=== PATIENT | female | born 2000 | race Caucasian/White ===

== ENCOUNTER 2022-08-27 12:24 | Inpatient (IN) ==
[2022-08-27 13:35] LABS: Basophils # (auto) 0.02 K/uL (0-0.2); Basophils % (auto) 0.3 %; Eosinophils # (auto) 0.11 K/uL (0-0.50); Eosinophils % (auto) 1.9 %; Hematocrit (blood only) 37.7 % (37.0-47.0); Hemoglobin 12.9 g/dl (12.0-16.0); Immature Granulocytes # (auto) 0.01 K/uL (0.01-0.20); Immature Granulocytes % (auto) 0.2 %; Lymphocytes # (auto) 1.45 K/uL (1.2-3.4); Lymphocytes % (auto) 24.9 %; Mean Corpuscular Hemoglobin 30.5 pg (25.0-34.0); Mean Corpuscular Hgb Conc 34.2 g/dL (32.0-36.0); Mean Corpuscular Volume 89.1 fL (80.0-100.0); Mean Platelet Volume 10.3 fL (9.4-12.4); Monocytes # (auto) 0.59 K/uL (0.11-0.59); Monocytes % (auto) 10.1 %; Neutrophils # (auto) 3.64 K/uL (1.40-6.50); Neutrophils % (auto) 62.6 %; Platelet Count 260 K/uL (130-400); RDW Coefficient of Variation 13.2 % (11.5-14.5); RDW Standard Deviation 42.6 fL (36.4-46.3); Red Blood Count 4.23 M/uL (4.20-5.40); White Blood Count 5.82 K/ul (4.8-10.8)
[2022-08-27 13:38] LABS: Total Protein Urine Random < 4.0 mg/dl (0-11.9)
[2022-08-27 13:50] LABS: Alanine Aminotransferase 8 U/L (7-52); Aspartate Aminotransferase 16 U/L (13-39)
[2022-08-27 14:14] LABS: Creatinine Urine Random 19.7 mg/dl
[2022-08-27] MEDS ORDERED: LACTATED RINGER'S 1,000 ML IV SCH ×2 (14:45→17:30)
[2022-08-27] MEDS ORDERED: CITRIC ACID/SODIUM CITRATE 15 ML UDC PO SCH (14:45)
[2022-08-27] MEDS ORDERED: ceFAZolin 2000MG 2,000 MG/15 ML SYR IV SCH (14:45)
--- NOTE | 2022-08-27 15:48 | History & Physical Report ---
Date of Service August 27, 2022 Assessment & Plan (1) Gestational hypertension: Plan: 2 para 1-0-0-1 female presents because of persistent headache and elevated blood pressures on 2 separate occasions 24 hours apart meeting criteria for gestational hypertension at 38-3/7 weeks. As a result, we will proceed with repeat section at this time. All PIH labs and subsequent blood pressures on further observation labor and delivery have been in the normal range. The section procedure and its risks were reviewed with the patient and all questions were answered to her satisfaction and she is willing to proceed. History of Present Illness Primary Care Provider: Morales Serrano DO Patient is a 22-year-old 2 para 1-0-0-1 female EDC 09/07/2022 who presents at 38-3/7 weeks for follow-up of elevated blood pressure in the office. Her blood pressures were elevated on 08/26/2022. They were 146/102 and after 5 minutes blood pressure was 134/98. She was sent to labor and delivery for further evaluation. PIH labs and blood pressures were normal during her observation in labor and delivery. Patient then developed a headache behind her left eye. She was seen in the office again today. She had taken Tylenol earlier today with no resolution of her headache. Blood pressures today were 144/92 and after sitting for 5 minutes, 136/92. She was sent to labor and delivery again for further evaluation. PIH labs are all normal. Urine protein creatinine ratio was 2 low to the detected. Despite the fact that her PIH labs again are normal, elevated blood pressures on 2 separate occasions 24 hours apart gives her the diagnosis of gestational hypertension. Since she is at 38 weeks gestation, we will therefore repeat section at this time. Her prior section was done because of failure to progress after 2 hours of pushing and nonreassuring heart rate pattern. Patient was requesting repeat section. This has been complicated by an abnormal heart on anatomy scan. The aorta was noted to be larger than the pulmonary artery. Follow-up echo however showed normal cardiac anatomy and normal large vessel anatomy. GBS is negative. Allergies Allergy/AdvReac Type Severity Reaction Status Date / Time miconazole Allergy Severe severe Verified 08/27/22 12:48 itching and burning Home Medications Medication Instructions Recorded Confirmed Type prenat.vits,gina,scn-hsym-lokhe 1 tab PO DAILY 01/15/22 08/27/22 History Patient History Medical History History of anesthesia complications epidural "did not work with her last , when they took me in for my , I felt everything and they had to put me completely under general anesthesia" History of COVID-19 2020, tested at [facility], not hosp; no symptoms, tested for work Hx of migraines Surgical History History of esophagogastroduodenoscopy (EGD) History of laparoscopy for endometriosis and "softball sized" ovarian cyst Hx of section S/P cholecystectomy S/P tonsillectomy S/P wisdom tooth extraction Family History Other Diabetes Heart disease Myocardial infarction Social History Smoking Status: Never smoker Second Hand Exposure: No; Do You Dip or Chew Tobacco: No; Hx Alcohol Use: No Hx Substance Use: No Preferred Language: Khmer Communication Ability: Effective 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 Beliefs That Will Affect Care: None marital status: marital status details: Dong (27) [phone] Current Living Situation: Spouse Current Living Situation Comment: lives with spouse, daughter, 1 dog, 1 cat, spouse to change litter current occupational status: employed current occupation: [employer] Feels Safe at Home: Yes Safety Concerns: Feels Safe At This Time Assistive Devices: None Review of Systems All systems reviewed & are unremarkable except as noted in HPI & below Physical Exam Constitutional: WD/WN, vitals as above Psychiatric: A+Ox3, euthymic affect Genitourinary: OB Exam Abdomen: + vertex, + estimated weight (6-7 pounds) and + irregular contractions OB Exam Monitor Tracing: + external FHT monitor used, + external uterine monitor used, + category I and + normal FHT variability Results & Data Vital Signs (Past 12 Hours) Vital Signs Temp Pulse Resp BP 08/27/22 12:46 97.9 F 18 08/27/22 14:16 95 H 122/82 08/27/22 13:45 106 H 114/76 08/27/22 13:15 96 H 120/80 08/27/22 12:42 88 121/83 Coding Level of Care Code None Diagnoses Gestational hypertension O13.9
[2022-08-27] MEDS ORDERED: ONDANSETRON INJ 2 MG/ML 2 ML VIAL ONE (16:07)
[2022-08-27] MEDS ORDERED: MoRPHine SULFATE PF 1 MG/ML 10 ML AMP/VIAL ONE (16:07)
[2022-08-27] MEDS ORDERED: KETAMINE 50 MG/5 ML SYRINGE ONE (16:47)
[2022-08-27] MEDS ORDERED: MIDAZOLAM HCL 1 MG/ML 2ML VIAL ONE (16:47)
--- NOTE | 2022-08-27 17:21 | Post Operative Brief Note ---
PG Immediate Post Op with CF Date of Surgery August 27, 2022 Pre & Post Diagnosis Operation Date: 08/27/22 15:05 Pre-Op Diagnosis: 1. IUP at 38 weeks 2. Gest Hypertension 3. Previous c/section desires repeat Post-Op Diagnosis: Same I identified the patient and participated in the time-out.: Yes Procedure Operation Date: 08/27/22 15:05 Actual Procedures p Section in LD with the of a live female child at 1650(Bilateral) - Lisbeth Barnhart MD, FACOG Surgeon Lisbeth Barnhart MD, FACOG Receiving Supervisor Aiyana Coates MD Estimated Blood Loss 400 Findings Consistent with Post-Op Diagnosis gravid uterus, normal Fallopian tubes and ovaries. Specimens Specimen Description: A: Placenta-hold B: Cord blood Drains Sheldon Catheter (Sheldon placed after spinal; clear yellow urine noted upon insertion. ) Anesthesia Type Spinal Complications none Disposition Accompanied Patient To Recovery: Yes
[2022-08-27] MEDS ORDERED: diphenhydrAMINE Capsule 25 MG CAP PO PRN (17:22)
[2022-08-27] MEDS ORDERED: PROMETHAZINE HCL 25 MG in SODIUM CHLORIDE 0.9% 50 ML IV PRN (17:22)
[2022-08-27] MEDS ORDERED: KETOROLAC 30 MG/ML VIAL IV PRN ×2 (17:22→18:00)
[2022-08-27] MEDS ORDERED: BENZOCAINE 20% AER SPR 82.5 GM CAN EXT PRN (17:22)
[2022-08-27] MEDS ORDERED: DIPHTHERIA/TETANUS/PERTUSSIS Vaccine (Tdap, Age 7+yrs) 0.5mL SYR/VL IM ONE (17:22)
[2022-08-27] MEDS ORDERED: diphenhydrAMINE 50 MG/ML VIAL IV PRN ×3 (17:22→18:00)
[2022-08-27] MEDS ORDERED: HYDROCORTISONE ACETATE 25 MG SUPP PR PRN (17:22)
[2022-08-27] MEDS ORDERED: MAGNESIUM HYDROXIDE SUSP 30 ML UDC PO PRN (17:22)
[2022-08-27] MEDS ORDERED: MEPERIDINE HCL 50 MG/ML CARP IV PRN (17:22)
[2022-08-27] MEDS ORDERED: ONDANSETRON INJ 2 MG/ML 2 ML VIAL IV PRN (17:22)
[2022-08-27] MEDS ORDERED: oxyCODONE/ACETAMINOPHEN 5mg/325mg TAB PO PRN (17:22)
[2022-08-27] MEDS ORDERED: SENNA 8.6 MG TAB PO PRN (17:22)
[2022-08-27] MEDS ORDERED: KETOROLAC 30 MG/ML VIAL ONE (17:38)
--- NOTE | 2022-08-27 17:40 | Anesthesiology Progress Note ---
Date of Service August 27, 2022 Anesthesia Post Procedure Vital Signs Vital Signs: Temp Pulse Resp BP Pulse Ox 08/27/22 12:46 36.6 C 18 08/27/22 17:34 70 100 08/27/22 14:16 95 H 122/82 08/27/22 13:45 106 H 114/76 08/27/22 13:15 96 H 120/80 08/27/22 12:42 88 121/83 Transfer of Care Handoff Completed per policy Notes Mental Status: alert / awake / arousable and participated in evaluation Nausea / Vomiting: adequately controlled Pain: adequately controlled Airway Patency, RR, SpO2: stable & adequate BP & HR: stable & adequate Hydration State: stable & adequate Neuraxial Anesthesia: was administered and sensory block is resolving Anesthetic Complications: no major complications apparent and Pt Satisfied with anesthetic care
--- NOTE | 2022-08-27 17:42 | Anesthesiology Consultation ---
Date of Service August 27, 2022 Assessment & Plan Chart Review Chart Review: Acceptable Risk for Surgery Consults Requested none ASA ASA2 Proposed Anesthesia Anesthesia Type: Spinal Risk / Benefits Reviewed With: PT / POA / Parent / Guardian, Accepts Plan and Informed Consent Obtained History Surgery Operation Date: 08/27/22 15:05 Proposed Procedures p Section in LD - Lisbeth Barnhart MD, FACOG Height/Weight Height: 5 ft 4 in Weight: 75.75 kg Allergies Allergy/AdvReac Type Severity Reaction Status Date / Time miconazole Allergy Severe severe Verified 08/27/22 12:48 itching and burning Medications Home Medications Medication Instructions Recorded Confirmed Last Taken prenat.vits,gina,ymr-[id number]-[id number] 1 tab PO DAILY 01/15/22 08/27/22 08/26/22 NPO Date Last Intake of Fluids: 08/27/22 Time Last Intake of Fluids: 07:00 Date Last Intake of Solids: 08/27/22 Time Last Intake of Solids: 07:00 Past Medical History Medical History History of anesthesia complications epidural "did not work with her last , when they took me in for my , I felt everything and they had to put me completely under general anesthesia" History of COVID-19 2019, tested at [facility], not hosp; no symptoms, tested for work Hx of migraines Exercise / Class Metabolic Activity II 4-5 Yardwork/Stairs/Walk up hill Past Family History Family History Other Diabetes Heart disease Myocardial infarction Past Surgical History Surgical History History of esophagogastroduodenoscopy (EGD) History of laparoscopy for endometriosis and "softball sized" ovarian cyst Hx of section S/P cholecystectomy S/P tonsillectomy S/P wisdom tooth extraction Past Anesthesia History No Hx of Anesthesia Complications History of PONV No Hx of PONV Social History Smoking Status: Never smoker Do You Dip or Chew Tobacco: No Hx Alcohol Use: No Hx Substance Use: No substance use type: does not use Physical Exam Vital Signs Last Vital Signs Temp 36.6 C 08/27/22 12:46 Pulse 70 08/27/22 17:34 Resp 18 08/27/22 12:46 BP 122/82 08/27/22 14:16 Pulse Ox 100 08/27/22 17:34 Constitutional no acute distress ENMT Thyromental Distance: > or= 3.5 Finger Breadths Mallampati Class: II Neck normal visual inspection Respiratory normal respiratory effort; no respiratory distress Auscultation: lungs clear to auscultation bilaterally Cardiovascular Rate/Rhythm: regular rate and regular rhythm Heart Sounds: no murmur Psychiatric Orientation: alert and oriented x 3 Testing Laboratory Results 08/27/22 13:06 Blood Type O Positive 08/27/22 14:47 Antibody Screen NEGATIVE 08/27/22 14:47
[2022-08-27] MEDS ORDERED: ePHEDrine sulfate 50 MG/ML AMP IV PRN ×3 (18:00)
[2022-08-27] MEDS ORDERED: NALOXONE HCL 1 MG in SODIUM CHLORIDE 0.9% 1000ML 1,000 ML IV PRN (18:00)
[2022-08-27] MEDS ORDERED: LACTATED RINGER'S 500 ML IV PRN ×2 (18:00)
[2022-08-27] MEDS ORDERED: NALOXONE HCL 0.08 MG in SYRINGE 1.8 ML IV PRN (18:00)
[2022-08-27] MEDS ORDERED: MoRPHine SULFATE PF 1 MG/ML 10 ML AMP/VIAL INT SPINAL ONE (18:00)
[2022-08-27] MEDS ORDERED: DC INTRASPINAL MORPHINE SCH ×2 (18:00)
[2022-08-27] MEDS ORDERED: SODIUM CHLORIDE 0.9% 1000ML 1,000 ML IV SCH ×2 (18:00)
[2022-08-27] MEDS ORDERED: NALBUPHINE HCL INJ 10 MG/ML AMP IV PRN ×2 (18:00)
[2022-08-27] MEDS ORDERED: HYDROmorphone INJ 0.5 MG/0.5 ML SYR IV PRN (18:00)
[2022-08-27] MEDS ORDERED: NALOXONE HCL 0.4 MG/1 ML VIAL/CARP IV PRN ×2 (18:00)
[2022-08-27] MEDS ORDERED: NO NARCOTICS OR SEDATIVES SCH ×2 (18:00)
[2022-08-27] MEDS ORDERED: ATROPINE SULFATE 0.1 MG/ML 10ML SYR IV PRN (18:00)
[2022-08-27] MEDS ORDERED: HYDROmorphone INJ 0.5 MG/0.5 ML SYR ONE (18:03)
[2022-08-27] MEDS ORDERED: HYDROmorphone INJ 0.5 MG/0.5 ML SYR IV STA (18:06)
[2022-08-27] MEDS: OXYTOCIN 20 UNITS in LACTATED RINGER'S 1,000 ML IV SCH (19:01)
[2022-08-27] MEDS ORDERED: ACETAMINOPHEN 1,000 MG/100 ML VIAL IV PRN (19:01)
--- NOTE | 2022-08-27 19:12 | Operative Report ---
PG Post Operative Report Pre & Post Diagnosis Operation Date: 08/27/22 15:05 Pre-Op Diagnosis: 1. IUP at 38 weeks 2. Gest Hypertension 3. Previous c/section desires repeat Post-Op Diagnosis: Same I identified the patient and participated in the time-out.: Yes Procedure Operation Date: 08/27/22 15:05 Actual Procedures p Section in LD with the of a live female child at 1650(Bilateral) - Lisbeth Barnhart MD, FACOG Surgeon Lisbeth Barnhart MD, FACOG Finance Business Partner Aiyana Coates MD Estimated Blood Loss 400 Findings Consistent with Post-Op Diagnosis Gravid uterus consistent with term in size normal bilateral fallopian tubes and ovaries Specimens placenta to hold Drains Sheldon catheter to straight drainage- clear urine at end of the case Anesthesia Type Spinal Complications none Disposition Accompanied Patient To Recovery: Yes Indications Patient is a 22-year-old 2 para 1-0-0-1 female who presents at 38 3/7 weeks with blood pressure criteria that meets the diagnosis of gestational hypertension. She had a prior section for failure to progress and she is requesting repeat section. Procedure and its risks were reviewed with the patient and all of her questions were answered to her satisfaction and she is willing to proceed. Description of Procedure After the patient's received adequate subarachnoid block she was prepped and draped in usual sterile fashion. A low transverse skin incision was made with a scalpel through her prior scar. This was taken to the fascia with the same scalpel. The fascial incision was then extended with Peterson scissors the edges were then grasped with Lazara clamps and the underlying rectus muscles bluntly sharply dissected off of the overlying fascia. The peritoneal cavity was entered bluntly and the bladder was then taken down off the anterior surface of the uterus. At this point patient was becoming painful and she received IV medications for sedation at this time. We were then able to continue with the section. After the bladder was taken down off the anterior surface of the uterus, it was placed behind the bladder blade. The lower uterine segment was entered with a scalpel and the incision was extended transversely. Membranes were ruptured for clear fluid. The was delivered in the vertex presentation with assistance of the Kiwi vacuum to bring the head up out of the pelvis. Moderate fundal pressure was also applied and after the head was delivered the rest the baby delivered easily. It was a female that was vigorous and crying upon delivery. The cord was clamped and cut and the was handed off to Dr. Travis who was in attendance as clipping marker. After cord blood was obtained, the placenta was expressed intact with a three-vessel cord. Uterus was then exteriorized and covered with a clean lap sponge. Uterine cavity was explored and found to be free of any placental tissue or membranes. The uterus was then closed in 2 layers in a running locking imbricating fashion with 0 Monocryl suture. Hemostasis was noted to be excellent. The posterior cul-de-sac was suctioned for small amount of fluid. The uterine incision continued to have excellent hemostasis and therefore the uterus was placed back inside the abdominal cavity. The gutters were explored and found to be free of any placental tissue clots or fluid. The uterine incision continued to be hemostatic. The rectus muscle were then brought together on the midline with individual stitches of 0 Monocryl. The fascia was then closed in a running fashion with 0 Vicryl. After irrigating the adipose layer, the skin edges were in a subcutaneous manner with 3-0 Vicryl. Mother and were doing well after delivery and upon arrival back in the labor delivery unit. I attest to the content of the Intraoperative Record and any orders documented therein. Any exceptions are noted below. OB Procedure Charges 57161
[2022-08-27] MEDS ORDERED: LACTATED RINGER'S 500 ML IV ONE ×2 (19:53→19:54)
[2022-08-27] MEDS: DOCUSATE SODIUM 100 MG CAP PO SCH (20:56)
[2022-08-27] MEDS: SIMETHICONE 80 MG CHEW PO SCH (20:56)
[2022-08-28] MEDS: OXYTOCIN 20 UNITS in LACTATED RINGER'S 1,000 ML IV SCH (03:45)
[2022-08-28 06:52] LABS: Basophils # (auto) 0.03 K/uL (0-0.2); Basophils % (auto) 0.4 %; Eosinophils # (auto) 0.11 K/uL (0-0.50); Eosinophils % (auto) 1.5 %; Hematocrit (blood only) 33.4 % (37.0-47.0); Hemoglobin 11.2 g/dl (12.0-16.0); Immature Granulocytes # (auto) 0.02 K/uL (0.01-0.20); Immature Granulocytes % (auto) 0.3 %; Lymphocytes # (auto) 1.32 K/uL (1.2-3.4); Lymphocytes % (auto) 17.8 %; Mean Corpuscular Hemoglobin 30.4 pg (25.0-34.0); Mean Corpuscular Hgb Conc 33.5 g/dL (32.0-36.0); Mean Corpuscular Volume 90.5 fL (80.0-100.0); Mean Platelet Volume 10.3 fL (9.4-12.4); Monocytes % (auto) 10.8 %; Neutrophils # (auto) 5.14 K/uL (1.40-6.50); Neutrophils % (auto) 69.2 %; Platelet Count 189 K/uL (130-400); RDW Coefficient of Variation 13.3 % (11.5-14.5); RDW Standard Deviation 43.6 fL (36.4-46.3); Red Blood Count 3.69 M/uL (4.20-5.40); White Blood Count 7.42 K/ul (4.8-10.8)
[2022-08-28] MEDS: PRENATAL VITAMIN 1 TAB PO SCH (08:05)
[2022-08-28] MEDS: DOCUSATE SODIUM 100 MG CAP PO SCH ×2 (08:05→20:02)
[2022-08-28] MEDS: FERROUS SULFATE 325 MG TAB PO SCH (08:05)
[2022-08-28] MEDS: SIMETHICONE 80 MG CHEW PO SCH ×4 (08:05→20:02)
--- NOTE | 2022-08-28 08:41 | Obstetrical Progress Note ---
Date of Service August 28, 2022 Assessment & Plan (1) Encounter for care and examination after delivery: satisfactory exam continue current care plan Subjective Ambulation: limited ambulation Voiding: rivera catheter in place Passing Gas:: Yes Diet Tolerance:: clear liquids Lochia:: Small Feeding Type:: breast feeding Review of Systems All systems reviewed & are unremarkable except as noted in HPI & below Physical Exam Constitutional WD/WN, vitals as above Gastrointestinal (Abdomen) incision dry and intact. mild ecchymosis superiorly Psychiatric A+Ox3, euthymic affect Genitourinary OB Exam Abdomen: + fundal height Fundus: + firm and + relation to umbilicus (at U) Results & Data Vital Signs (Past 12 Hours) Vital Signs Temp Pulse Resp BP Pulse Ox O2 Del Method 08/28/22 07:00 97.5 F L 75 16 116/80 100 Room Air 08/28/22 07:00 18 100 08/28/22 06:15 18 99 08/28/22 05:45 18 96 08/28/22 03:40 18 97 08/28/22 03:40 97.7 F 84 18 113/77 97 Room Air 08/28/22 02:30 18 97 08/28/22 01:00 18 98 08/28/22 00:00 18 98 08/27/22 23:20 18 98 08/27/22 23:12 97.9 F 79 18 116/75 98 Room Air 08/27/22 22:00 16 96 08/27/22 21:00 18 97
[2022-08-28] MEDS: IBUPROFEN 600 MG TAB PO PRN ×2 (11:08→19:58)
[2022-08-28] MEDS ORDERED: bisacodyL 5 MG TABEC PO SCH (20:00)
[2022-08-29] MEDS: IBUPROFEN 600 MG TAB PO PRN ×2 (01:47→05:56)
[2022-08-29] MEDS: SIMETHICONE 80 MG CHEW PO SCH (05:54)
[2022-08-29] MEDS: PRENATAL VITAMIN 1 TAB PO SCH (05:54)
[2022-08-29] MEDS: DOCUSATE SODIUM 100 MG CAP PO SCH (05:54)
[2022-08-29] MEDS: FERROUS SULFATE 325 MG TAB PO SCH (05:54)
[2022-08-29 06:17] LABS: Hematocrit (blood only) 33.2 % (37.0-47.0); Hemoglobin 11.1 g/dl (12.0-16.0)
--- NOTE | 2022-08-29 07:30 | Obstetrical Progress Note ---
Date of Service August 29, 2022 Assessment & Plan (1) Encounter for care and examination after delivery: Postoperative from section patient meets discharge criteria as she is ambulating well tolerating an oral diet has minimal bleeding and no extremity pain. Discharge instructions were reviewed and prescriptions were sent to her pharmacy of choice patient advised to call with any concerns and follow-up in the office discussed incision cdi ext neg Subjective Ambulation: ambulating normally Voiding: no voiding problems Passing Gas:: Yes Diet Tolerance:: regular diet Lochia:: Small Feeding Type:: breast feeding Results & Data Vital Signs (Past 12 Hours) Vital Signs Temp Pulse Resp BP Pulse Ox O2 Del Method 08/29/22 03:35 98.1 F 74 18 107/69 98 Room Air 08/28/22 22:56 97.5 F L 81 18 108/70 98 Room Air 08/28/22 19:40 98.2 F 90 18 117/75 98 Room Air 08/28/22 19:40 Room Air
[2022-08-29] MEDS ORDERED: bisacodyL 10 MG SUPP PR PRN (17:22)
== END 2022-08-29 10:30 | disposition home or self-care (01) | DRG 788 ==
LOC: OPB 12:24 → 4S1 12:28 → 4E2 19:59

== ENCOUNTER 2023-09-15 21:45 | Observation (INO) ==
--- NOTE | 2023-09-15 22:00 | Emergency Department Note ---
History of Present Illness General Chief complaint: Rectal Pain Stated complaint: HYSTERECTOMY/2WKS AGO, RECTAL PAIN Time Seen by Provider: 09/15/23 21:51 History of Present Illness This 23-year-old female presents ER complaining of rectal pain and pain with bowel movements for the past few days. Patient had a hysterectomy 2 weeks ago. She tried MiraLAX and Colace without relief. She is tried Preparation H. Patient denies abdominal pain, fevers, vomiting, anal insertion. No other concerns per patient. No colonoscopy in the past. She has had hemorrhoids but this feels different Home Medications Medication Instructions Recorded Confirmed Type docusate sodium 100 mg capsule 100 mg PO TID 09/15/23 09/15/23 History (Colace) polyethylene glycol 3350 17 gram 17 g PO DAILY PRN Constipation 09/15/23 09/15/23 History oral powder packet (Miralax) Allergies Allergy/AdvReac Type Severity Reaction Status Date / Time miconazole Allergy Severe severe Verified 09/15/23 22:52 itching and burning adhesive tape Allergy Intermediate skin Verified 09/15/23 22:52 irritation/rash surgical glue Allergy Severe Rash Uncoded 09/15/23 22:52 Past Med/Surg History Problem List (Updated 09/16/23 @ 01:08 by Jillian Muro PA-C) Postoperative abscess (Acute) Rectal pain (Acute) Post-operative state Abnormal uterine bleeding (AUB) Pain in female pelvis Vaginal discharge Dysuria Post-operative state Sterilization Encounter for care and examination after delivery Elevated blood pressure affecting , antepartum Encounter for pre-operative examination size inconsistent with dates Encounter for anatomic survey Previous delivery affecting , antepartum Supervision of normal intrauterine in multigravida Medical History Hx of gastroesophageal reflux (GERD) diet controlled History of pneumonia as a teenager History of COVID-19 (2019) mild, not hospitalized, Hx of ovarian cyst Hx of endometriosis Pain in female pelvis Abnormal uterine bleeding History of gestational hypertension resulted in Hx of migraines Surgical History Hx of bilateral salpingectomy (12/2022) [place] teeth removed History of tonsillectomy and adenoidectomy History of anesthesia complications epidural "did not work with her last , when they took me in for my , I felt everything and they had to put me completely under general anesthesia" History of esophagogastroduodenoscopy (EGD) History of laparoscopy x 2>for endometriosis and "softball sized" ovarian cyst (2017) S/P cholecystectomy Hx of section x 2 Family History Father Heart disease recent [place], Stents, in 40's Myocardial infarction in 40's, had stents Grandfather Heart disease Other Diabetes No family history of adverse response to anesthesia Social History Smoking Status: Never smoker Second Hand Exposure: No; Do You Dip or Chew Tobacco: No; Hx Alcohol Use: Yes Hx Substance Use: No Preferred Language: Brazilian Communication Ability: Effective Right Of Way Man Required: No Beliefs That Will Affect Care: None marital status: marital status details: Dong (27) [phone] Current Living Situation: Spouse and Family Current Living Situation Comment: lives with spouse, daughter, 1 dog, 1 cat, spouse to change litter current occupational status: employed current occupation: [email or web address] Feels Safe at Home: Yes Assistive Devices: None Review of Systems A total of 10 systems reviewed and were otherwise negative Physical Exam Vital Signs Vital Signs - 24 hr 09/15/23 21:48 09/15/23 21:57 09/15/23 23:20 Temperature 36.6 C Temperature Source Temporal Artery Scan Pulse Rate 117 H 130 H Pulse Rate [Apical] 93 H Pulse Rhythm Regular Pulse Strength Normal Respiratory Rate 20 23 18 Respiratory Effort / Characteristics Non-Labored Spontaneous Respiratory Depth Normal Blood Pressure 150/81 H Blood Pressure [Right Arm] 120/74 Blood Pressure Mean 104 Blood Pressure Mean [Right Arm] 89 Blood Pressure Position Sitting Blood Pressure Position [Right Arm] Sitting Pulse Oximetry 97 94 99 Oxygen Delivery Method Room Air Room Air Room Air Sepsis Recent Fever Within 48 Hours No Sepsis New/Unexplained Change in Mental Status N/A Sepsis Action Taken by Nursing No Action Required VITALS: Vitals are noted on the nurse's note and reviewed by myself. Vital signs stable. GENERAL: Pleasant female, in no acute distress, nondiaphoretic, well-developed well-nourished. SKIN: Capillary reflex less than 2 seconds. HEENT: Normocephalic. PERRLA. EOMI. Nares patent. Mucous membranes moist. Neck is supple without nuchal rigidity. HEART: Regular rate and rhythm LUNGS: Clear to auscultation bilaterally without wheezes, rales or rhonchi. No retractions or accessory muscle use. ABDOMEN: Positive bowel sounds x 4. Normal tympanic percussion. Soft, nontender, without masses or organomegaly. Norris sign negative. No guarding or rebound tenderness. no CVA tenderness Rectal exam: No fissures or tears, no obvious hemorrhoids, no palpable abscess. Computer [employer] present MUSCULOSKELETAL: No gross musculoskeletal defects. NEURO: Patient was alert and oriented to person place and time. No focal neurological deficits. Course Administered Medications Discontinued Medications Sodium Chloride (Nss) 1,000 mls @ 999 mls/hr IV .Q1H1M STA Stop: 09/15/23 22:57 Last Infusion: 09/15/23 23:53 Dose: Infused Documented By: Admin: 09/15/23 22:26 Dose: 999 mls/hr Documented By: Ioversol (Optiray 320 100ml) 100 ml IV ONCE ONE Stop: 09/15/23 23:09 Last Admin: 09/15/23 23:09 Dose: 92 ml Documented By: CARLOS Ketorolac Tromethamine (Ketorolac Tromethamine 15 Mg/Ml Vial) 10 mg IV NOW STA Stop: 09/15/23 21:58 Last Admin: 09/15/23 22:28 Dose: 10 mg Documented By: Medical Decision Making Medical Records Attestation: I reviewed the patient's medical records. Home Medications Current Medication List: was personally reviewed by me Laboratory Data Attestation: I reviewed the patient's lab results. 09/15/23 22:15 09/15/23 22:15 Lab Results 09/15/23 09/16/23 Range/Units 22:15 00:47 WBC 9.42 (4.8-10.8) K/ul RBC 4.66 (4.20-5.40) M/uL Hgb 14.1 (12.0-16.0) g/dl Hct 40.5 (37.0-47.0) % MCV 86.9 (80.0-100.0) fL MCH 30.3 (25.0-34.0) pg MCHC 34.8 (32.0-36.0) g/dL RDW Std Deviation 38.7 (36.4-46.3) fL RDW Coeff of Robbi 12.3 (11.5-14.5) % Plt Count 344 (130-400) K/uL MPV 9.5 (9.4-12.4) fL Immature Gran % (Auto) 0.2 % Neut % (Auto) 66.4 % Lymph % (Auto) 17.3 % [place] % (Auto) 12.0 % Eos % (Auto) 3.4 % Baso % (Auto) 0.7 % Neut # (Auto) 6.25 (1.40-6.50) K/uL Lymph # (Auto) 1.63 (1.20-3.40) K/uL [place] # (Auto) 1.13 H (0.11-0.59) K/uL Eos # (Auto) 0.32 (0.00-0.50) K/uL Baso # (Auto) 0.07 (0.00-0.20) K/uL Immature Gran # (Auto) 0.02 (0.01-0.20) K/uL Sodium 137 (136-145) mmol/L Potassium 4.0 (3.5-5.1) mmol/L Chloride 102 (98-107) mmol/L Carbon Dioxide 28 (21-32) mmol/L Anion Gap 7 (3-11) BUN 10 (6-23) mg/dl Creatinine 0.67 (0.6-1.2) mg/dl Est Cr Clr Drug Dosing 125.6 ml/min Est GFR ( Amer) 141.6 ml/min Est GFR (Non-Af Amer) 122.2 ml/min BUN/Creatinine Ratio 14.9 (10-20) Glucose 98 (70-99(Fasting)) mg/dl Lactate 0.6 (0.4-2.0) mmol/L Calcium 9.4 (8.6-10.3) mg/dl Total Bilirubin 0.6 (0.2-1.0) mg/dl AST 22 (13-39) U/L ALT 24 (7-52) U/L Alkaline Phosphatase 105 H (34-104) U/L Total Protein 7.6 (6.0-8.3) gm/dl Albumin 4.6 (3.4-5.0) gm/dl Globulin 3.0 (2.5-4.0) gm/dl Albumin/Globulin Ratio 1.5 (0.9-2) Urine Color Yellow Urine Appearance Clear (Clear) Urine pH 6.5 (4.5-7.5) Ur Specific [place] 1.012 (1.000-1.030) Urine Protein Negative (Negative) Urine Glucose (UA) Negative (Negative) Urine Ketones Negative (Negative) Urine Blood 1+ H (Negative) Urine Nitrite Negative (Negative) Urine Bilirubin Negative (Negative) Urine Urobilinogen Negative (Negative) Ur Leukocyte Esterase 2+ H (Negative) Urine WBC (Auto) 11-20 H (0-5) /hpf Urine RBC (Auto) 0-2 (0-2) /hpf U Hyaline Cast (Auto) 0-2 (0-2) /lpf U Epithel Cells (Auto) 6-10 H (0-2) /hpf Urine Bacteria (Auto) None Seen (None Seen) Imaging Data Attestation: I personally reviewed and interpreted this imaging study as follows: Radiologist's Impression: Abdomen/Pelvis CT 09/15/23 21:58 CR Exam(s): CT ABDOMEN + PELVIS With Contrast IV Amt: 92 ML OPTIRAY 320 EXAM: CT Abdomen and Pelvis With Intravenous Contrast CLINICAL HISTORY: Rectal Pain, recent hysterectomy. TECHNIQUE: Axial computed tomography images of the abdomen and pelvis with intravenous contrast. CTDI is 21 mGy and DLP is 1091 mGy-cm. Automated exposure control was utilized for the study. A dose lowering technique was utilized adhering to the principles of ALARA. CONTRAST: Patient received 92 ML OPTIRAY 320 of IV contrast COMPARISON: No relevant prior studies available. FINDINGS: Lung bases: Unremarkable. No mass. No consolidation. ABDOMEN: Liver: Unremarkable. No mass. Gallbladder and bile ducts: Unremarkable. No calcified stones. No ductal dilation. Pancreas: Unremarkable. No mass. No ductal dilation. Spleen: Unremarkable. No splenomegaly. Adrenals: Unremarkable. No mass. Kidneys and ureters: Unremarkable. No solid mass. No hydronephrosis. Stomach and bowel: Unremarkable. No obstruction. No mucosal thickening. PELVIS: Appendix: Normal appendix. Bladder: Unremarkable. No mass. Reproductive: There is a 3.6 x 3.2 x 2.7 cm fluid collection at the hysterectomy site concerning for an abscess. This abuts the rectum which demonstrates thickening of the wall. Hysterectomy. ABDOMEN and PELVIS: Intraperitoneal space: Unremarkable. No free air. No significant fluid collection. Bones/joints: No acute fracture. No dislocation. Soft tissues: Small fat-containing umbilical hernia. Vasculature: Unremarkable. No abdominal aortic aneurysm. Lymph nodes: Unremarkable. No enlarged lymph nodes. IMPRESSION: There is a 3.6 x 3.2 x 2.7 cm fluid collection at the hysterectomy site concerning for an abscess. This abuts the rectum which demonstrates thickening of the wall. Communications: Verify Receipt Electronically signed by: Omayra Smith MD 09/16/23 00:05 AM MDM Narrative Prior records/ancillary studies reviewed. Triage Nursing notes reviewed. Additional history obtained from nurse. The patient's history was concerning for rectal pain Differential diagnosis: Etiologies such as fissure, tear, abscess, cellulitis, hemorrhoids, infection, as well as others were entertained. Physical examination findings: As above. ER treatment provided: An order was placed for continuous cardiac monitoring. The monitor shows a rate of 60-100 with a sinus rhythm per my Independent interpretation. IV fluids, Toradol was ordered Zosyn On reassessment the patient felt better. Diagnostics interpreted by me: The labs Independently Interpreted by myself revealed no worrisome leukocytosis, negative urine. Blood cultures pending Negative lactic Imaging studies: Imaging as above Consultation: A consultation was placed with the [facility], Dr. Riddle. The case was discussed and diagnostics were reviewed. The patient was admitted to her service. Exam and history seem consistent with rectal pain with concerns for postsurgical infection. Patient was afebrile nontoxic. No leukocytosis. Negative lactic. She was started on antibiotics. OB was consulted and will admit the patient to their service. Patient was admitted to [facility] in stable condition. By the evaluation outlined above emergent etiologies such as appendicitis, diverticulitis, PUD, biliary pathology, UTI, pancreatitis, obstruction, mesenteric ischemia, aortic pathology, inflammatory bowel disease, renal colic, as well as others were deemed relatively unlikely. The pt informed about the findings as listed above. All questions were answered and pleased with the treatment. The chart was completed utilizing [employer] voice recognition software. Grammatical errors, random word insertions, pronoun errors, and incomplete sentences are an occassional consequence of this system due to software limitations, ambient noise, and hardware issues. Any formal questions or concerns about the content, text, or information contained within the body of this dictation should be directly addressed to the physician marketing communications assistant for clarification. Impression & Plan Rectal pain, Postoperative abscess Discharge Plan Visit Data Chief Complaint: Rectal Pain Stated Complaint: HYSTERECTOMY/2WKS AGO, RECTAL PAIN ED Provider: Donal Mayo ED Midlevel Provider: Jillian Muro Discharge Problem: Rectal pain, Postoperative abscess Patient Disposition: Admitted As Inpatient Condition: Good Forms Stand Alone Forms: [employer] [facility] Prescriptions Prescriptions: No Action polyethylene glycol 3350 [Miralax] 17 gram Powder In Packet 17 g PO DAILY PRN (Reason: Constipation) docusate sodium [Colace] 100 mg Capsule 100 mg PO TID Referrals Referrals: Morales Serrano DO [Primary Care Provider] -
[2023-09-15] MEDS: SODIUM CHLORIDE 0.9% 1,000 ML IV STA (22:26)
[2023-09-15] MEDS: KETOROLAC TROMETHAMINE 15 MG/ML VIAL IV STA (22:28)
[2023-09-15 22:35] LABS: Basophils # (auto) 0.07 K/uL (0.00-0.20); Basophils % (auto) 0.7 %; Eosinophils # (auto) 0.32 K/uL (0.00-0.50); Eosinophils % (auto) 3.4 %; Hematocrit (blood only) 40.5 % (37.0-47.0); Hemoglobin 14.1 g/dl (12.0-16.0); Immature Granulocytes # (auto) 0.02 K/uL (0.01-0.20); Immature Granulocytes % (auto) 0.2 %; Lymphocytes # (auto) 1.63 K/uL (1.20-3.40); Lymphocytes % (auto) 17.3 %; Mean Corpuscular Hemoglobin 30.3 pg (25.0-34.0); Mean Corpuscular Hgb Conc 34.8 g/dL (32.0-36.0); Mean Corpuscular Volume 86.9 fL (80.0-100.0); Mean Platelet Volume 9.5 fL (9.4-12.4); Monocytes # (auto) 1.13 K/uL (0.11-0.59); Neutrophils # (auto) 6.25 K/uL (1.40-6.50); Neutrophils % (auto) 66.4 %; Platelet Count 344 K/uL (130-400); RDW Coefficient of Variation 12.3 % (11.5-14.5); RDW Standard Deviation 38.7 fL (36.4-46.3); Red Blood Count 4.66 M/uL (4.20-5.40); White Blood Count 9.42 K/ul (4.8-10.8)
[2023-09-15 22:41] LABS: Appearance Urine Clear (Clear); Bacteria Urine Automated None Seen (None Seen); Bilirubin Urine Negative (Negative); Blood Urine 1+ (Negative); Cast Urine Automated 0-2 /lpf (0-2); Color Urine Yellow; Glucose Urine UA Negative (Negative); Ketones Urine Negative (Negative); Leukocyte Esterase Urine 2+ (Negative); Nitrite Urine Negative (Negative); Protein Urine Negative (Negative); RBC Urine Automated 0-2 /hpf (0-2); Specific Gravity Urine 1.012 (1.000-1.030); Urobilinogen Urine Negative (Negative); pH Urine 6.5 (4.5-7.5)
[2023-09-15 22:48] LABS: Albumin Globulin Ratio 1.5 (0.9-2); Albumin Level 4.6 gm/dl (3.4-5.0); BUN Creatinine Ratio 14.9 (10-20); Bilirubin,Total 0.6 mg/dl (0.2-1.0); Calcium 9.4 mg/dl (8.6-10.3); Creatinine Clr Calc Pharmacy 125.6 ml/min; Est GFR (African American) 141.6 ml/min; Est GFR (Non-African American) 122.2 ml/min; Total Protein 7.6 gm/dl (6.0-8.3)
[2023-09-15] MEDS: OPTIRAY 320 100ml IV ONE (23:09)
--- NOTE | 2023-09-16 00:05 | CT Scan Report ---
Exam(s): CT ABDOMEN + PELVIS With Contrast IV Amt: 92 ML OPTIRAY 320 EXAM: CT Abdomen and Pelvis With Intravenous Contrast CLINICAL HISTORY: Rectal Pain, recent hysterectomy. TECHNIQUE: Axial computed tomography images of the abdomen and pelvis with intravenous contrast. CTDI is 21 mGy and DLP is 1091 mGy-cm. Automated exposure control was utilized for the study. A dose lowering technique was utilized adhering to the principles of ALARA. CONTRAST: Patient received 92 ML OPTIRAY 320 of IV contrast COMPARISON: No relevant prior studies available. FINDINGS: Lung bases: Unremarkable. No mass. No consolidation. ABDOMEN: Liver: Unremarkable. No mass. Gallbladder and bile ducts: Unremarkable. No calcified stones. No ductal dilation. Pancreas: Unremarkable. No mass. No ductal dilation. Spleen: Unremarkable. No splenomegaly. Adrenals: Unremarkable. No mass. Kidneys and ureters: Unremarkable. No solid mass. No hydronephrosis. Stomach and bowel: Unremarkable. No obstruction. No mucosal thickening. PELVIS: Appendix: Normal appendix. Bladder: Unremarkable. No mass. Reproductive: There is a 3.6 x 3.2 x 2.7 cm fluid collection at the hysterectomy site concerning for an abscess. This abuts the rectum which demonstrates thickening of the wall. Hysterectomy. ABDOMEN and PELVIS: Intraperitoneal space: Unremarkable. No free air. No significant fluid collection. Bones/joints: No acute fracture. No dislocation. Soft tissues: Small fat-containing umbilical hernia. Vasculature: Unremarkable. No abdominal aortic aneurysm. Lymph nodes: Unremarkable. No enlarged lymph nodes. IMPRESSION: There is a 3.6 x 3.2 x 2.7 cm fluid collection at the hysterectomy site concerning for an abscess. This abuts the rectum which demonstrates thickening of the wall. Communications: Verify Receipt Electronically signed by: Omayra Smith MD 09/16/23 00:05 AM
--- NOTE | 2023-09-16 01:14 | History & Physical Report ---
Date of Service September 16, 2023 Assessment & Plan (1) Rectal pain: Plan: Initial read of CT scan of vaginal cuff abscess. Patient is afebrile with normal vitals and normal labs. Differential includes abscess vs Tisseal across vaginal cuff. Started on Zosyn in ER - will admit and continue IV antibiotics. Will provide bowel regimen: colace, miralax, milk of mag, in efforts to relieve constipation. For pain control, ibuprofen/tylenol - will attempt to avoid narcotics if possible to avoid further constipation problems. History of Present Illness Chief Complaint: constipation Primary Care Provider: Morales Serrano, 23yo who presented to ER with concerns of constipation and rectal pain. Hysterectomy 08/31/23 for endometriosis and chronic pelvic pain. No bowel movement today - worried she may have hemorrhoids. Very light pink vaginal bleeding. Eating/drinking normally. No fever/chills. Allergies Allergy/AdvReac Type Severity Reaction Status Date / Time miconazole Allergy Severe severe Verified 09/15/23 22:52 itching and burning propolis (bee glue) Allergy Severe "surgical Verified 09/16/23 02:12 glue" -- Rash adhesive tape Allergy Intermediate skin Verified 09/15/23 22:52 irritation/rash Home Medications Medication Instructions Recorded Confirmed Type docusate sodium 100 mg capsule 100 mg PO TID 09/15/23 09/15/23 History (Colace) polyethylene glycol 3350 17 gram 17 g PO DAILY PRN Constipation 09/15/23 09/15/23 History oral powder packet (Miralax) Patient History Medical History Hx of gastroesophageal reflux (GERD) diet controlled History of pneumonia as a teenager History of COVID-19 (2019) mild, not hospitalized, Hx of ovarian cyst Hx of endometriosis Pain in female pelvis Abnormal uterine bleeding History of gestational hypertension resulted in Hx of migraines Surgical History Hx of bilateral salpingectomy (12/2022) [place] teeth removed History of tonsillectomy and adenoidectomy History of anesthesia complications epidural "did not work with her last , when they took me in for my , I felt everything and they had to put me completely under general anesthesia" History of esophagogastroduodenoscopy (EGD) History of laparoscopy x 2>for endometriosis and "softball sized" ovarian cyst (2017) S/P cholecystectomy Hx of section x 2 Family History Father Heart disease recent [place], Stents, in 40's Myocardial infarction in 40's, had stents Grandfather Heart disease Other Diabetes No family history of adverse response to anesthesia Social History Smoking Status: Never smoker Second Hand Exposure: No; Do You Dip or Chew Tobacco: No; Hx Alcohol Use: Yes Alcohol type: beer Hx Substance Use: No Preferred Language: Icelandic Communication Ability: Effective R And D Lab Technician Required: No Beliefs That Will Affect Care: None marital status: marital status details: Dong (27) [phone] Current Living Situation: Spouse and Family Current Living Situation Comment: lives with spouse, daughter, 1 dog, 1 cat, spouse to change litter current occupational status: employed current occupation: [employer] Feels Safe at Home: Yes Assistive Devices: None Physical Exam Physical Exam: Constitutional: alert, in no acute distress, well nourished, well developed and healthy appearing. Skin: normal skin color and pigmentation, normal skin turgor and no rash. Neck: the appearance of the neck was normal, no neck mass was observed Pulmonary: no respiratory distress, normal respiratory rhythm and effort Cardiovascular: heart rate and rhythm were normal Abdomen: soft, non-tender, no abdominal mass palpated, nondistended. Incisions CDI. : No vaginal bleeding. Spec exam performed yesterday in office by Dr Coates, intact cuff per his notes. Neurological: The patient was oriented to person, place, and time. Mood and affect were appropriate. Extremities: No edema, no calf tenderness. Results & Data Vital Signs (Past 12 Hours) Vital Signs Temp Pulse Pulse Resp BP BP Pulse Ox 09/15/23 23:20 93 H 18 120/74 99 09/15/23 21:57 130 H 23 94 09/15/23 21:48 36.6 C 117 H 20 150/81 H 97 O2 Del Method 09/15/23 23:20 Room Air 07/04/24 21:57 Room Air 09/15/23 21:48 Room Air Coding Level of Care Code 36649 INT INP/OBS CARE 255MIN Diagnoses Rectal pain K62.89
[2023-09-16] MEDS: PIPERACILLIN/TAZOBACTAM 4.5 GM/100 ML BAG IV ONE (01:24)
[2023-09-16] MEDS ORDERED: ACETAMINOPHEN 325 MG TAB PO PRN (02:03)
[2023-09-16] MEDS: MAGNESIUM HYDROXIDE SUSP 30 ML UDC PO PRN (02:51)
[2023-09-16] MEDS: POLYETHYLENE (MIRALAX) 17 GM PACK PO PRN (02:51)
[2023-09-16] MEDS: PIPERACILLIN/TAZOBACTAM 4.5 GM in DEXTROSE 5% MINI-B 100 ML IV SCH (05:26)
[2023-09-16 06:12] LABS: Basophils # (auto) 0.05 K/uL (0.00-0.20); Basophils % (auto) 0.8 %; Eosinophils # (auto) 0.29 K/uL (0.00-0.50); Eosinophils % (auto) 4.7 %; Hematocrit (blood only) 35.3 % (37.0-47.0); Hemoglobin 12.1 g/dl (12.0-16.0); Immature Granulocytes # (auto) 0.02 K/uL (0.01-0.20); Immature Granulocytes % (auto) 0.3 %; Lymphocytes # (auto) 1.56 K/uL (1.20-3.40); Lymphocytes % (auto) 25.4 %; Mean Corpuscular Hemoglobin 29.7 pg (25.0-34.0); Mean Corpuscular Hgb Conc 34.3 g/dL (32.0-36.0); Mean Corpuscular Volume 86.7 fL (80.0-100.0); Mean Platelet Volume 9.4 fL (9.4-12.4); Monocytes # (auto) 0.78 K/uL (0.11-0.59); Monocytes % (auto) 12.7 %; Neutrophils # (auto) 3.43 K/uL (1.40-6.50); Neutrophils % (auto) 56.1 %; Platelet Count 290 K/uL (130-400); RDW Coefficient of Variation 12.2 % (11.5-14.5); RDW Standard Deviation 38.7 fL (36.4-46.3); Red Blood Count 4.07 M/uL (4.20-5.40); White Blood Count 6.13 K/ul (4.8-10.8)
[2023-09-16] MEDS: IBUPROFEN 600 MG TAB PO PRN (07:41)
[2023-09-16] MEDS: OPTIRAY 320 125ml IV ONE (08:34)
--- NOTE | 2023-09-16 08:42 | CT Scan Report ---
CT ANGIOGRAPHY OF THE CHEST, PULMONARY EMBOLUS PROTOCOL CLINICAL HISTORY: Possible pulmonary embolus on CT of the abdomen and pelvis. COMPARISON STUDY: No previous studies for comparison. TECHNIQUE: Following IV administration of Optiray, helical axial images of the chest were obtained ut ilizing the pulmonary embolus protocol. Maximal intensity projections and sagittal and coronal refor mats were viewed on an independent 3D workstation. IV contrast was administered without complication . Automated exposure control was utilized for the study. A dose lowering technique was utilized adh ering to the principles of ALARA. CT DOSE: 564.76 mGy.cm FINDINGS: There is a segmental pulmonary embolus within the lateral basal segment of the right lower lobe. This corresponds to the finding on abdominal CT of September 15, 2023. No additional pulmonary embol i are identified. Size of the heart is normal. There is no pericardial effusion. No enlarged axillary , mediastinal or hilar lymph nodes are present. There is no pulmonary infarct. Lungs are clear. No pn eumothorax or pleural effusion is present. Bony thorax is unremarkable. A few subcapsular hypodense r ight hepatic lobe lesions measure up to 9 mm. These represent cysts. IMPRESSION: Segmental pulmonary embolus within the lateral basal segment of the right lower lobe whi ch corresponds to the finding on abdominal CT of September 15, 2023. No additional pulmonary emboli. ACT 112: Negative or not required by law. Electronically signed by: Joselito Mendez M.D. 09/16/2023 8:41 AM
[2023-09-16] MEDS: DOCUSATE SODIUM 100 MG CAP PO SCH (09:23)
--- NOTE | 2023-09-16 10:35 | Hospitalist Consultation ---
Date of Consultation September 16, 2023 Assessment & Plan (1) Pulmonary embolus, right: Acute/stable - Incidentally found on CTAP, confirmed by CTA chest - Segmental, no associated pulmonary infarct - Obtain hypercoagulable panel given family h/o blood clots - Obtain b/l venous dopplers for completeness - Defer echo given size of PE - Empirically start on Eliquis 10mg BID x7 days then reduce to 5mg BID, will need treated x3 months (pending hypercoag panel, if + will need to be treated indefinitely) - Discussed with Dr. Coates (2) Rectal pain: Acute/stable - No indication of stool burden on CT, suspect this is related to fluid collection noted CT abutting the rectum - Pain control w/ Tylenol as ordered by Distillation Operator (3) Postoperative abscess: Acute/stable - VSS, afebrile, no leukocytosis - Abscess versus hematoma, gyne is favoring the latter - Appears admitting physician started empiric Zosyn - Ultimately treatment is deferred to primary service Plan Plan as outlined above. Thank you for allowing us to participate in the care of your patient, plan discussed with Dr. Lassiter who is in agreement with aforementioned and will also see and evaluate this patient. Further orders as warranted. Will continue to follow. Supervising Physician Co-Signing Physician Notes Attending Attestation & Hospitalist Consultation Note: Pt seen/examined, chart reviewed, care plan d/w TONJA Mao. I agree w/ the duncan components of her consultation. 23yo female who on 08/30 underwent robotically assisted laparoscopic hysterectomy (ovaries not removed). She was recovering at home when she developed rectal pain x 3 days. Presented to [facility] - CT a/p with rectal abscess vs hematoma. Incidental note made of a RLL segmental pulmonary embolus. radio equipment installer service consulted the hospitalist team for management of this incidentally noted PE. Patient denies any dyspnea, HERNANDEZ, pleuritic chest pain, cough. No leg pains. Dopplers of legs obtained today - negative for DVT. No pelvic vein DVT noted on imaging either. Ms Mao spoke with the primary gang sawyer service and, despite the possible hematoma present in the rectal area, ok to use anticoagulation. Thus, patient started on ELiquis 10mg BID. Exam: gen - NAD, looks well neck - no JVD heart - RRR, s1 s2, no murmur lungs - CTA b/l abd - soft NT ND BS+ ext - no edema, pulses 2+ b/l Plan - Agree no need for echo at this time. Agree with hypercoagulable work-up in light of young age and this clotting event. PE would be considered provoked event, however, in light of recent hysterectomy. Plan Eliquis 10mg BID x 7 days, then Eliquis 5mg BID thereafter. Plan 3 months of Rx. Defer rectal fluid collection Rx to primary gang sawyer service. Thank you for this consult. Lucio Lassiter MD History of Present Illness Reason for Consultation: Incidental pulmonary embolism Requesting Physician: Dr. Coates Attending Physician: Judy Cavazos DO History of Present Illness Hien Diop is a 23 yo F with a pmhx of endometriosis and is 2 weeks s/p laparoscopic hysterectomy who presented to the ER on 09/15/23 due to severe rectal pain x 3 days. She denies fever, chills, abd pain, n/v/d. Her last BM was on Tuesday (1 day prior to admission). She believed that she may have been constipated and subsequently began taking OTC stool softeners and Miralax without relief. She presented to the ER where a CT a/p revealed a fluid collection abutting the rectum concerning for abscess versus hematoma as well as an incidental finding of a right lower lobe segmental pulmonary embolus w/o pulmonary infarct. She was admitted under radio equipment installer service and empirically started on Zosyn and medicine has been consulted due to the incidental finding of PE. She denies having chest pain or dyspnea. No hypoxemia noted. She does endorse a family history of blood clots in her paternal grandfather but is unsure of his underlying condition. She has never had any blood clots in the past. She is not on OCP and does not use tobacco. Allergies Allergy/AdvReac Type Severity Reaction Status Date / Time miconazole Allergy Severe severe Verified 09/20/23 14:23 itching and burning propolis (bee glue) Allergy Severe "surgical Verified 09/20/23 14:23 glue" -- Rash adhesive tape Allergy Intermediate skin Verified 09/20/23 14:23 irritation/rash latex Allergy Rash Verified 09/20/23 14:23 Home Medications Medication Instructions Recorded Confirmed Type docusate sodium 100 mg capsule 100 mg PO TID 09/15/23 09/20/23 History (Colace) polyethylene glycol 3350 17 gram 17 g PO DAILY PRN Constipation 09/15/23 09/20/23 History oral powder packet (Miralax) amoxicillin 875 mg-potassium 1 tab PO Q12H 10 days #20 tabs 09/17/23 09/20/23 Rx clavulanate 125 mg tablet apixaban 5 mg tablet (Eliquis) 5 mg PO DIRECTED #60 tabs 09/17/23 09/20/23 Rx acetaminophen 325 mg tablet 650 mg PO Q6 PRN Pain 09/20/23 09/20/23 History ibuprofen 600 mg tablet 600 mg PO Q8 PRN Pain 09/20/23 09/20/23 History oxycodone 5 mg tablet 5 mg PO DAILY PRN Pain 09/20/23 09/20/23 History Patient History Medical History Hx of gastroesophageal reflux (GERD) diet controlled History of pneumonia as a teenager History of COVID-19 (2019) mild, not hospitalized, Hx of ovarian cyst Hx of endometriosis Pain in female pelvis Abnormal uterine bleeding History of gestational hypertension resulted in Hx of migraines Surgical History Hx of bilateral salpingectomy (12/2022) [place] teeth removed History of tonsillectomy and adenoidectomy History of anesthesia complications epidural "did not work with her last , when they took me in for my , I felt everything and they had to put me completely under general anesthesia" History of esophagogastroduodenoscopy (EGD) History of laparoscopy x 2>for endometriosis and "softball sized" ovarian cyst (2016) S/P cholecystectomy Hx of section x 2 Family History Father Heart disease recent OR, Stents, in 40's Myocardial infarction in 40's, had stents Grandfather Heart disease Other Diabetes No family history of adverse response to anesthesia Social History Smoking Status: Never smoker Second Hand Exposure: No; Do You Dip or Chew Tobacco: No; Tobacco Cessation Education Requested by Patient: No Hx Alcohol Use: Yes Alcohol type: beer Hx Substance Use: No Preferred Language: Ugandan Communication Ability: Effective Roll Forming Machine Set Up Operator Required: No Beliefs That Will Affect Care: None marital status: marital status details: Dong (27) [phone] Current Living Situation: Spouse and Family Current Living Situation Comment: lives with spouse, daughter, 1 dog, 1 cat, spouse to change litter current occupational status: employed current occupation: [employer] Other Information That Helps Us Care for You: No Feels Safe at Home: Yes Safety Concerns: Feels Safe At This Time Assistive Devices: None Review of Systems 2 Review of Systems: All systems reviewed and are unremarkable except as noted in HPI and below. Denies fever, chills, fatigue, headache, nasal congestion, sore throat, cough, chest pain, shortness of breath, palpitations, orthopnea, PND, abdominal pain, n/v/d, constipation, dysuria, hematuria, frequency, back pain, joint pain or swelling, easy bruising or bleeding, skin lesions or rashes. Physical Exam 2 Physical Exam: GENERAL: 23 yo well-developed, well-nourished healthy female. NAD. EYES: EOMI. PERRLA. Anicteric. HENT: Moist mucous membranes. No scleral icterus. No cervical lymphadenopathy. LUNGS: Clear to auscultation bilaterally. No accessory muscle use. No W/R/R. CARDIOVASCULAR: Regular rate and rhythm. No M/G/R. No JVD. ABDOMEN: Soft, non-tender, mildly distended. No palpable masses. Bowel sounds normoactive x 4 quad. EXTREMITIES: No edema. Non-tender. Peripheral pulses +2/4. NEUROLOGIC: A&O x3. No focal neurological deficits. CN II-XII grossly intact. PSYCHIATRIC: Cooperative. Appropriate mood and affect. SKIN: Warm, dry, intact. No rashes or lesions. Results & Data Results & Data Vital Signs (Past 12 Hours) Vital Signs Temp Pulse Resp BP Pulse Ox O2 Del Method 09/16/23 07:35 Room Air 09/16/23 07:35 36.7 C 82 18 115/80 98 Room Air 09/16/23 02:30 110/65 09/16/23 02:30 36.6 C 80 18 98 Room Air 09/16/23 02:19 Room Air 09/15/23 23:20 93 H 18 120/74 99 Room Air Laboratory Results 09/16/23 05:42 09/15/23 22:15 Diagnostic Findings Abdomen/Pelvis CT 09/15/23 21:58 CR Exam(s): CT ABDOMEN + PELVIS With Contrast IV Amt: 92 ML OPTIRAY 320 EXAM: CT Abdomen and Pelvis With Intravenous Contrast CLINICAL HISTORY: Rectal Pain, recent hysterectomy. TECHNIQUE: Axial computed tomography images of the abdomen and pelvis with intravenous contrast. CTDI is 21 mGy and DLP is 1091 mGy-cm. Automated exposure control was utilized for the study. A dose lowering technique was utilized adhering to the principles of ALARA. CONTRAST: Patient received 92 ML OPTIRAY 320 of IV contrast COMPARISON: No relevant prior studies available. FINDINGS: Lung bases: Unremarkable. No mass. No consolidation. ABDOMEN: Liver: Unremarkable. No mass. Gallbladder and bile ducts: Unremarkable. No calcified stones. No ductal dilation. Pancreas: Unremarkable. No mass. No ductal dilation. Spleen: Unremarkable. No splenomegaly. Adrenals: Unremarkable. No mass. Kidneys and ureters: Unremarkable. No solid mass. No hydronephrosis. Stomach and bowel: Unremarkable. No obstruction. No mucosal thickening. PELVIS: Appendix: Normal appendix. Bladder: Unremarkable. No mass. Reproductive: There is a 3.6 x 3.2 x 2.7 cm fluid collection at the hysterectomy site concerning for an abscess. This abuts the rectum which demonstrates thickening of the wall. Hysterectomy. ABDOMEN and PELVIS: Intraperitoneal space: Unremarkable. No free air. No significant fluid collection. Bones/joints: No acute fracture. No dislocation. Soft tissues: Small fat-containing umbilical hernia. Vasculature: Unremarkable. No abdominal aortic aneurysm. Lymph nodes: Unremarkable. No enlarged lymph nodes. IMPRESSION: There is a 3.6 x 3.2 x 2.7 cm fluid collection at the hysterectomy site concerning for an abscess. This abuts the rectum which demonstrates thickening of the wall. Communications: Verify Receipt Electronically signed by: Omayra Smith MD 09/16/23 00:05 AM Chest CTA 09/16/23 06:41 CT ANGIOGRAPHY OF THE CHEST, PULMONARY EMBOLUS PROTOCOL CLINICAL HISTORY: Possible pulmonary embolus on CT of the abdomen and pelvis. COMPARISON STUDY: No previous studies for comparison. TECHNIQUE: Following IV administration of Optiray, helical axial images of the chest were obtained utilizing the pulmonary embolus protocol. Maximal intensity projections and sagittal and coronal reformats were viewed on an independent 3D workstation. IV contrast was administered without complication. Automated exposure control was utilized for the study. A dose lowering technique was utilized adhering to the principles of ALARA. CT DOSE: 564.76 mGy.cm FINDINGS: There is a segmental pulmonary embolus within the lateral basal segment of the right lower lobe. This corresponds to the finding on abdominal CT of September 15, 2023. No additional pulmonary emboli are identified. Size of the heart is normal. There is no pericardial effusion. No enlarged axillary, mediastinal or hilar lymph nodes are present. There is no pulmonary infarct. Lungs are clear. No pneumothorax or pleural effusion is present. Bony thorax is unremarkable. A few subcapsular hypodense right hepatic lobe lesions measure up to 9 mm. These represent cysts. IMPRESSION: Segmental pulmonary embolus within the lateral basal segment of the right lower lobe which corresponds to the finding on abdominal CT of September 15, 2023. No additional pulmonary emboli. ACT 112: Negative or not required by law. Electronically signed by: Joselito Mendez M.D. 09/16/2023 8:41 AM PG Care Time/CCT Total # of Minutes Spent Total Time Spent with Patient: Total time spent is greater than 50% in coordination of care (as documented) at patient's floor/unit and/or counseling patient: 60. Time spent on this consult including face to face, review of chart, medication review, writing orders, and documenting in EHR. Coding Level of Care Code 20398 IN/OBS CONSULT LVL 4,60M Diagnoses Pulmonary embolus, right I26.99 Rectal pain K62.89 Postoperative abscess T81.49XA
[2023-09-16] MEDS: APIXABAN 5 MG TABLET PO SCH (10:48)
--- NOTE | 2023-09-16 13:38 | Ultrasound Report ---
BILATERAL LOWER EXTREMITY VENOUS DOPPLER HISTORY: History of pulmonary embolus. Assess for DVT. COMPARISON STUDY: None. FINDINGS: There is normal compressibility, flow, and augmentation within the bilateral lower extremit y deep venous systems. IMPRESSION: No DVT within the right or left lower extremity. ACT 112: Negative or not required by law. Electronically signed by: Parag Jordan M.D. 09/16/2023 1:36 PM
--- NOTE | 2023-09-16 21:15 | Communication Note ---
Date of Service: September 16, 2023 Checked on pt. She is feeling a little better, has had a few BMs w/o difficulty. Less sharp pain in her bottom now, hasn't needed add'l pain meds. Voiding w/o difficulty, pink discharge with wiping. Will continue to monitor
[2023-09-17 07:28] LABS: Hematocrit (blood only) 37.1 % (37.0-47.0); Hemoglobin 12.4 g/dl (12.0-16.0); Mean Corpuscular Hemoglobin 29.6 pg (25.0-34.0); Mean Corpuscular Hgb Conc 33.4 g/dL (32.0-36.0); Mean Corpuscular Volume 88.5 fL (80.0-100.0); Mean Platelet Volume 9.6 fL (9.4-12.4); Platelet Count 302 K/uL (130-400); RDW Coefficient of Variation 12.3 % (11.5-14.5); RDW Standard Deviation 39.8 fL (36.4-46.3); Red Blood Count 4.19 M/uL (4.20-5.40)
--- NOTE | 2023-09-17 07:58 | Gynecologic Progress Note ---
Date of Service September 17, 2023 Assessment & Plan (1) Pulmonary embolus, right: (2) Rectal pain: Plan -pt's symptoms improving, no obvious signs of infection. Pt desiring to go home. Discussed with Dr. Coates as on-coming call provider and primary surgeon for pt, we both agree she seems stable to go home. Will continue antibx PO out of precaution. Continue bowel regimen, pain management -will await hospitalist ok for dc this AM from blood thinner regimen, but if ok will go home -will send message to have appt w/ Dr. Coates on or for close f/u Admission and Anticipated Discharge Date Admission Date: September 16, 2023 Subjective Resting comfortably, feels much better than yesterday. Occ pain in bottom in addition to the general discomfort but nothing like before. Having normal bms, voiding w/o difficulty. Tolerating PO, denies fevers, chills. Just some pink with wiping Physical Exam Gastrointestinal (Abdomen): soft, nontender, appropriately distended given recent procedure incisions well healed Musculoskeletal: bilateral lower ext NT Results & Data Vital Signs (Past 12 Hours) Vital Signs Temp Pulse Pulse Resp BP BP Pulse Ox 09/16/23 23:00 97.7 F 79 18 118/77 98 09/16/23 20:09 98.1 F 84 18 118/79 99 O2 Del Method 09/16/23 23:00 Room Air 09/16/23 20:09 Room Air PG Care Time/CCT Total # of Minutes Spent Total Time Spent with Patient: Total time spent is greater than 50% in coordination of care (as documented) at patient's floor/unit and/or counseling patient: Coding Level of Care Code 32400 SUB INP/OBS CARE 04/07MIN Diagnoses Pulmonary embolus, right I26.99 Rectal pain K62.89
--- NOTE | 2023-09-17 10:54 | Hospitalist Progress Note ---
Date of Service September 17, 2023 Assessment & Plan (1) Pulmonary embolus, right: Plan: Segmental, RLL Incidentally found on CT abd/pelvis then confirmed on CTA chest b/l venous dopplers of legs - negative for DVT CT abd/pelvis did not show any pelvic vein thrombosis hypercoagulable genetic w/u dispatched plan - Eliquis 10mg BID x 7 days then 5mg BID since this was a provoked event plan 3 months of Rx (2) Rectal pain: Plan: shane-rectal fluid collection --> hematoma vs abscess defer Rx to primary Securities Attorney service Ms Mao with our hospitalist team d/w gynecology yesterday the initiation of Eliquis although hematoma of the shane-rectal area is possible the benefits of anticoagulation outweigh its risks H/H remain stable Hb yesterday 12.1 today 12.4 Plan From medical standpoint can d/c home I appreciate the opportunity to be involved in Ms Diop's care Information on anticoagulation added to d/c instructions Admission and Anticipated Discharge Date Admission Date: September 16, 2023 Subjective no issues overnight denies rectal bleeding minimal vaginal bleeding (pink-tinged only) having soft BMs and denies rectal pain with passing the stool no other complaints Review of Systems Review of Systems: cv - no pleuritic chest discomfort pulm - no dyspnea or HERNANDEZ Physical Exam Physical Exam: gen - NAD, looks well skin - no pallor neck - no JVD heart - RRR s1 s2; no murmur lungs - CTA b/l abd - soft NT ND BS+ ext - no edema, pulses 2+ b/l Results & Data Results & Data Vital Signs (Past 12 Hours) Vital Signs Temp Pulse Resp BP Pulse Ox O2 Del Method 09/17/23 07:25 36.6 C 67 18 113/76 98 Room Air 09/16/23 23:00 36.5 C 79 18 118/77 98 Room Air Laboratory Results Laboratory Results - last 24 hr 09/17/23 06:56 WBC 5.90 RBC 4.19 L Hgb 12.4 Hct 37.1 MCV 88.5 MCH 29.6 MCHC 33.4 RDW Std Deviation 39.8 RDW Coeff of Robbi 12.3 Plt Count 302 MPV 9.6 PG Care Time/CCT Total # of Minutes Spent Total Time Spent with Patient: Total time spent is greater than 50% in coordination of care (as documented) at patient's floor/unit and/or counseling patient: Coding Level of Care Code 59810 SUB INP/OBS CARE 04/07MIN Diagnoses Pulmonary embolus, right I26.99 Rectal pain K62.89
[2023-09-22 09:02] LABS: Anti Cardiolipin Ab IgG <2.0 GPL-U/mL; Anti Cardiolipin Ab IgM <2.0 MPL-U/mL; Anti-Thrombin III Activity 117 % normal (80-135); B2 Glycoprotein IgG <2.0 U/mL (<20.0); B2 Glycoprotein IgM <2.0 U/mL (<20.0); PTT LA Screen 47 sec (<=40); Protein S Functional(Activity) 89 % normal (60-140)
== END 2023-09-17 12:20 | disposition home or self-care (01) ==
LOC: ED 21:45 → INTOOBSV 09-16 01:09 → 4E1 09-16 01:09

== ENCOUNTER 2023-09-20 15:55 | Observation (INO) ==
[2023-09-20] MEDS: SODIUM CHLORIDE 0.9% 1,000 ML IV STA (16:23)
[2023-09-20 16:34] LABS: Basophils # (auto) 0.05 K/uL (0.00-0.20); Basophils % (auto) 0.7 %; Eosinophils # (auto) 0.38 K/uL (0.00-0.50); Eosinophils % (auto) 5.3 %; Hematocrit (blood only) 39.7 % (37.0-47.0); Hemoglobin 13.5 g/dl (12.0-16.0); Immature Granulocytes # (auto) 0.01 K/uL (0.01-0.20); Immature Granulocytes % (auto) 0.1 %; Lymphocytes % (auto) 18.1 %; Mean Corpuscular Hemoglobin 29.3 pg (25.0-34.0); Mean Corpuscular Volume 86.3 fL (80.0-100.0); Mean Platelet Volume 9.5 fL (9.4-12.4); Monocytes # (auto) 0.55 K/uL (0.11-0.59); Monocytes % (auto) 7.7 %; Neutrophils # (auto) 4.88 K/uL (1.40-6.50); Neutrophils % (auto) 68.1 %; Platelet Count 384 K/uL (130-400); RDW Coefficient of Variation 12.1 % (11.5-14.5); RDW Standard Deviation 38.1 fL (36.4-46.3); White Blood Count 7.17 K/ul (4.8-10.8)
[2023-09-20 16:54] LABS: Alanine Aminotransferase 17 U/L (7-52); Albumin Globulin Ratio 1.3 (0.9-2); Albumin Level 4.6 gm/dl (3.4-5.0); Alkaline Phosphatase 100 U/L (34-104); Anion Gap 8 (3-11); Aspartate Aminotransferase 17 U/L (13-39); BUN Creatinine Ratio 12.3 (10-20); Bilirubin,Total 0.3 mg/dl (0.2-1.0); Blood Urea Nitrogen 9 mg/dl (6-23); Calcium 9.7 mg/dl (8.6-10.3); Carbon Dioxide 28 mmol/L (21-32); Chloride 103 mmol/L (98-107); Est GFR (African American) 132.7 ml/min; Est GFR (Non-African American) 114.5 ml/min; Globulin 3.5 gm/dl (2.5-4.0); Glucose 104 mg/dl (70-99(Fasting)); Potassium 3.5 mmol/L (3.5-5.1); Sodium 139 mmol/L (136-145); Total Protein 8.1 gm/dl (6.0-8.3)
[2023-09-20 16:58] LABS: Prothrombin Time 10.9 Seconds (9.0-12.0)
--- NOTE | 2023-09-20 16:59 | Emergency Department Note ---
Impression & Plan Vaginal bleeding ED Provider Note HISTORY OF PRESENT ILLNESS: Patient is a 23-year-old female presenting with vaginal bleeding. Patient had a hysterectomy 3 weeks ago. She was started on Eliquis for a pulmonary embolism starting 5 days ago. She did take 10 mg Eliquis today. She stated that last night she started having some vaginal bleeding. She states that initially was spotting. However, throughout the day today she has had heavier bleeding and passage of large clots. She states she has been saturating 2 pads an hour and passing large clots. She has been feeling lightheaded and dizzy. Denies any chest pain or shortness of breath. She was seen in OB clinic and was found to have bleeding from her vaginal cuff from her hysterectomy. She was referred to the emergency department for further evaluation. ROS: as above PHYSICAL EXAM: Constitutional: Patient appears in no acute distress. HENT: Head: Normocephalic and atraumatic. Eyes: EOMI, PERRL Mouth/Throat: Mucous membranes moist. Neck: Trachea midline. Neck supple. Cardiovascular: RRR, No murmurs, rubs or gallops. Intact distal pulses. Pulmonary/Chest: No respiratory distress. Breath sounds clear and equal bilaterally. No wheezes or rales. Abdominal: Abdomen soft, no tenderness, rebound or guarding. Musculoskeletal: No edema, tenderness or deformity noted. Skin: Warm and dry. No rash, erythema, pallor or cyanosis Psychiatric: Appropriate mood and affect for situation. Neurological: Alert and keenly responsive. CN II-XII grossly intact, moving all extremities equally and fully. MDM: - Vitals signs stable. - History obtained via patient. History as above. - Chronic conditions affecting care: pulmonary embolism - Differential diagnoses include, but are not limited to: Vaginal hemorrhage; coagulopathy; post-operative complication; UTI - Order placed for continuous cardiac monitoring. At this time, monitor showed rate of 88 bpm with normal sinus rhythm, per my interpretation. - External medical records reviewed. Gynecology visit note dated today was reviewed. Patient had increased vaginal bleeding and was seen emergently in the office today and had noted vaginal bleeding from her vaginal cuff. Multiple attempts were taken to stop the active bleeding, including silver nitrate and Monsel solution, with no hemostasis achieved. - OB project construction manager, Dr. Cavaozs, came and evaluated the patient on her arrival to the emergency department. She did a vaginal exam and reports that there was no active bleeding from the vaginal cough. She does report that she put in some TXA soaked gauze for any further bleeding. Requested that the patient get the ordered laboratory workup and CT imaging to ensure that she has no free fluid in her abdomen. Will admit to her service once medically cleared. She requested that medicine be consulted for weigh in about anticoagulation use in the setting of her vaginal bleeding and known pulmonary embolism. - Laboratory workup interpreted by myself showed normal WBC; normal PT/INR; stable electrolytes; normal hemoglobin - CT abdomen/pelvis with IV contrast showed complex fluid/debris in the vagina, which is consistent with the packing that will be placed. Noted to have a complex pocket of fluid in the rectovaginal space measuring 2.3 cm which may be a small hematoma, per radiology. - Hospitalist, Dr. Glover, consulted per OB request. He recommends holding the Eliquis and they will follow the patient along as a consult service. - Discussion was had with case therapist about patient's case and need for admission - Patient admitted to [facility] OB service for further evaluation and management. ASSESSMENT AND PLAN: Diagnosis: vaginal bleeding Plan: admit Past Med/Surg History Problem List (Updated 09/20/23 @ 19:14 by Ammy Jimenez MD) Vaginal bleeding (Acute) Vaginal bleeding Pulmonary embolus, right Postoperative abscess (Acute) Rectal pain (Acute) Post-operative state Abnormal uterine bleeding (AUB) Pain in female pelvis Vaginal discharge Dysuria Post-operative state Sterilization Encounter for care and examination after delivery Elevated blood pressure affecting , antepartum Encounter for pre-operative examination size inconsistent with dates Encounter for anatomic survey Previous delivery affecting , antepartum Supervision of normal intrauterine in multigravida Medical History Hx of gastroesophageal reflux (GERD) diet controlled History of pneumonia as a teenager History of COVID-19 (2019) mild, not hospitalized, Hx of ovarian cyst Hx of endometriosis Pain in female pelvis Abnormal uterine bleeding History of gestational hypertension resulted in Hx of migraines Surgical History Hx of bilateral salpingectomy (12/2022) [place] teeth removed History of tonsillectomy and adenoidectomy History of anesthesia complications epidural "did not work with her last , when they took me in for my , I felt everything and they had to put me completely under general anesthesia" History of esophagogastroduodenoscopy (EGD) History of laparoscopy x 2>for endometriosis and "softball sized" ovarian cyst (2017) S/P cholecystectomy Hx of section x 2 Family History Father Heart disease recent [place], Stents, in 40's Myocardial infarction in 40's, had stents Grandfather Heart disease Other Diabetes No family history of adverse response to anesthesia Social History Smoking Status: Never smoker Second Hand Exposure: No; Do You Dip or Chew Tobacco: No; Hx Alcohol Use: Yes Alcohol type: beer Hx Substance Use: No Preferred Language: Moroccan Communication Ability: Effective Solar Energy Installation Manager Required: No Beliefs That Will Affect Care: None marital status: marital status details: Dong (27) [phone] Current Living Situation: Spouse and Family Current Living Situation Comment: lives with spouse, daughter, 1 dog, 1 cat, spouse to change litter current occupational status: employed current occupation: [employer] Feels Safe at Home: Yes Assistive Devices: None Allergies Allergies Allergy/AdvReac Type Severity Reaction Status Date / Time miconazole Allergy Severe severe Verified 09/20/23 14:23 itching and burning propolis (bee glue) Allergy Severe "surgical Verified 09/20/23 14:23 glue" -- Rash adhesive tape Allergy Intermediate skin Verified 09/20/23 14:23 irritation/rash latex Allergy Rash Verified 09/20/23 14:23 Home Meds Home Medications Medication Instructions Recorded Confirmed docusate sodium 100 mg capsule 100 mg PO TID 09/15/23 09/20/23 (Colace) polyethylene glycol 3350 17 gram 17 g PO DAILY PRN Constipation 09/15/23 09/20/23 oral powder packet (Miralax) acetaminophen 325 mg tablet 650 mg PO Q6 PRN Pain 09/20/23 09/20/23 ibuprofen 600 mg tablet 600 mg PO Q8 PRN Pain 09/20/23 09/20/23 oxycodone 5 mg tablet 5 mg PO DAILY PRN Pain 09/20/23 09/20/23 Previous Rx's Medication Instructions Recorded amoxicillin 875 mg-potassium 1 tab PO Q12H 10 days #20 tabs 09/17/23 clavulanate 125 mg tablet apixaban 5 mg tablet (Eliquis) 5 mg PO DIRECTED #60 tabs 09/17/23 Results & Data (ED) Vital Signs Vital Signs - 24 hr 09/20/23 15:58 09/20/23 16:03 09/20/23 16:26 Temperature 36.8 C Temperature Source Oral Pulse Rate 91 H 88 88 Respiratory Rate 18 18 Respiratory Effort / Characteristics Non-Labored Spontaneous Respiratory Depth Normal Respiratory Pattern Regular Blood Pressure 114/84 Blood Pressure Mean 94 Blood Pressure Position Lying Pulse Oximetry 100 100 Oxygen Delivery Method Room Air Room Air Sepsis Recent Fever Within 48 Hours No Sepsis New/Unexplained Change in Mental Status N/A Sepsis Action Taken by Nursing No Action Required Laboratory Data 09/20/23 16:08 09/20/23 16:08 Lab Results 09/20/23 Range/Units 16:08 WBC 7.17 (4.8-10.8) K/ul RBC 4.60 (4.20-5.40) M/uL Hgb 13.5 (12.0-16.0) g/dl Hct 39.7 (37.0-47.0) % MCV 86.3 (80.0-100.0) fL MCH 29.3 (25.0-34.0) pg MCHC 34.0 (32.0-36.0) g/dL RDW Std Deviation 38.1 (36.4-46.3) fL RDW Coeff of Robbi 12.1 (11.5-14.5) % Plt Count 384 (130-400) K/uL MPV 9.5 (9.4-12.4) fL Immature Gran % (Auto) 0.1 % Neut % (Auto) 68.1 % Lymph % (Auto) 18.1 % [place] % (Auto) 7.7 % Eos % (Auto) 5.3 % Baso % (Auto) 0.7 % Neut # (Auto) 4.88 (1.40-6.50) K/uL Lymph # (Auto) 1.30 (1.20-3.40) K/uL [place] # (Auto) 0.55 (0.11-0.59) K/uL Eos # (Auto) 0.38 (0.00-0.50) K/uL Baso # (Auto) 0.05 (0.00-0.20) K/uL Immature Gran # (Auto) 0.01 (0.01-0.20) K/uL PT 10.9 (9.0-12.0) Seconds INR 1.0 (0.9-1.1) Sodium 139 (136-145) mmol/L Potassium 3.5 (3.5-5.1) mmol/L Chloride 103 (98-107) mmol/L Carbon Dioxide 28 (21-32) mmol/L Anion Gap 8 (3-11) BUN 9 (6-23) mg/dl Creatinine 0.73 (0.6-1.2) mg/dl Est Cr Clr Drug Dosing Not Reportable Est GFR ( Amer) 132.7 ml/min Est GFR (Non-Af Amer) 114.5 ml/min BUN/Creatinine Ratio 12.3 (10-20) Glucose 104 H (70-99(Fasting)) mg/dl Calcium 9.7 (8.6-10.3) mg/dl Total Bilirubin 0.3 (0.2-1.0) mg/dl AST 17 (13-39) U/L ALT 17 (7-52) U/L Alkaline Phosphatase 100 (34-104) U/L Total Protein 8.1 (6.0-8.3) gm/dl Albumin 4.6 (3.4-5.0) gm/dl Globulin 3.5 (2.5-4.0) gm/dl Albumin/Globulin Ratio 1.3 (0.9-2) Blood Type O Positive Antibody Screen NEGATIVE Administered Medications Discontinued Medications Sodium Chloride (Nss) 1,000 mls @ 999 mls/hr IV .Q1H1M STA Stop: 09/20/23 17:15 Last Infusion: 09/20/23 17:27 Dose: Infused Documented By: Admin: 09/20/23 16:23 Dose: 999 mls/hr Documented By: LEATHA Ioversol (Optiray 320 100ml) 95 ml IV ONCE ONE Stop: 09/20/23 17:26 Last Admin: 09/20/23 17:25 Dose: 95 ml Documented By: ARTEMIO Tranexamic Acid (Txa 10% Non-Iv Routes 100 Mg/Ml Vial) Confirm Administered Dose 1,000 mg .ROUTE .STK-MED ONE Stop: 09/20/23 16:08 Last Admin: 09/20/23 17:08 Dose: Not Given Documented By: LEATHA Tranexamic Acid (Txa 10% Non-Iv Routes 100 Mg/Ml Vial) 1,000 mg TOP ONE ONE Stop: 09/20/23 16:33 Last Admin: 09/20/23 17:08 Dose: 1,000 mg Documented By: ERMIAS Imaging Data Radiologist's Impression: Abdomen/Pelvis CT 09/20/23 16:30 CT SCAN OF THE ABDOMEN AND PELVIS WITH IV CONTRAST CLINICAL HISTORY: Vaginal bleeding. Reported history of a recent surgical procedure. COMPARISON STUDY: Abdominal CT dated 09/15/2023. TECHNIQUE: Following the IV administration of 95 cc of Optiray 320, CT scan of the abdomen and pelvis is performed from the lung bases to the proximal femora. Images are reviewed in the axial, sagittal, and coronal planes. IV contrast was administered without complication. A dose lowering technique was utilized adhering to the principles of ALARA. CT DOSE: 1025.05 mGy.cm FINDINGS: Lung bases: The heart is normal in size and without pericardial effusion. The lung bases are clear. Liver: The contrast-enhanced liver is normal in size, contour, and attenuation. A subcentimeter cyst is noted in the right lobe. There is no intrahepatic biliary ductal dilatation. The hepatic veins and portal veins are patent. Gallbladder: Unremarkable. Spleen: Normal in size and attenuation. Pancreas: Unremarkable. Adrenal glands: Unremarkable. Kidneys: The contrast enhanced kidneys are normal in size and without hydronephrosis. The kidneys enhance symmetrically. Abdominal vasculature: The abdominal aorta is normal in course and caliber. Bowel: There is moderate moderate colonic fecal retention. No bowel obstruction is seen. The appendix is well-visualized and normal. Peritoneum: There is no intraperitoneal free air or abdominal ascites. There is a fat-containing umbilical hernia. Periumbilical induration may be related to a laparoscopy port. Lymphadenopathy: None. Pelvic viscera: The the bladder is normal as visualized. Uterus is surgically absent. Hyperdense material along the vaginal cuff likely represents postsurgical change. Fluid/debris is suggested in the upper vagina. There is thrombus within the right gonadal vein, and probable thrombus within the left gonadal vein. Induration within the upper pelvis is likely a postoperative basis. There is a small pocket of complex fluid in the rectovaginal space on axial image #299. This measures 1.8 x 2.3 x 1.9 cm. Skeletal structures: No lytic or blastic lesions are seen. IMPRESSION: 1. The uterus is surgically absent, and hyperdense material along the vaginal cuff likely represents postsurgical change. Correlate with the operative history. 2. Complex fluid/debris is suggested within the vagina. Correlate with direct visualization. 3. There is a small complex pocket of fluid in the rectovaginal space as above which measures up to 2.3 cm. This may represent a small hematoma. The sterility of this fluid cannot be assessed by imaging, and it is unclear if this communicates with the vaginal cuff. 4. Nonspecific infiltration throughout the pelvis is likely on a postsurgical basis. 5. Nonocclusive thrombus is seen within both gonadal veins. 6. Additional findings as above. ACT 112: Negative or not required by law. Electronically signed by: Villa Davenport M.D. 09/20/2023 6:48 PM Discharge Plan Visit Data Chief Complaint: Vaginal Bleeding Stated Complaint: Vag bleed ED Provider: Ammy iJmenez Discharge Problem: Vaginal bleeding Forms Stand Alone Forms: [facility] [employer] Prescriptions Prescriptions: No Action polyethylene glycol 3350 [Miralax] 17 gram Powder In Packet 17 g PO DAILY PRN (Reason: Constipation) docusate sodium [Colace] 100 mg Capsule 100 mg PO TID amoxicillin-pot clavulanate 875-125 mg tablet 1 tab PO Q12H 10 Days Qty: 20 0RF Eliquis 5 mg Tablet 5 mg PO DIRECTED Qty: 60 0RF Rx Instructions: 2 tablets PO BID x 6 days, then 1 tablet PO BID thereafter. acetaminophen 325 mg tablet 650 mg PO Q6 PRN (Reason: Pain) oxycodone 5 mg tablet 5 mg PO DAILY PRN (Reason: Pain) ibuprofen 600 mg tablet 600 mg PO Q8 PRN (Reason: Pain) Referrals Referrals: Morales Serrano DO [Primary Care Provider] -
--- NOTE | 2023-09-20 16:59 | OB/GYN Consultation ---
Date of Consultation September 20, 2023 Assessment & Plan (1) Vaginal bleeding: At this time, heavy bleeding appears to have stopped. Suspect this is bleeding of the vaginal cuff edge due to anticoagulation with Eliquis. Hemoglobin obtained earlier today outpatient was 13.6, 2 hours later in the emergency department hemoglobin was stable at 13.5. With the stoppage of active bleeding and the TXA soaked vaginal packing, and given patient's labs and vitals are stable, I think it is reasonable to monitor her overnight. Will ask medicine to consult on patient because of her active treatment of pulmonary embolism, if they think appropriate may wish to hold Eliquis dose tonight. Will plan for repeat CBC this evening, close monitoring of vaginal bleeding. CT scan suggested to evaluate for any abdominal or pelvic bleeding. History of Present Illness Reason for Consultation: Vaginal bleeding History of Present Illness 23-year-old G2, P2 presented to the emergency department by ambulance from gynecology office for vaginal bleeding. She underwent total laparoscopic hysterectomy on 08/31/[address] Coates for endometriosis and chronic pelvic pain. She then presented to the emergency department on 09/15/2023 with concerns of rectal pain and constipation. She had incidental finding of pulmonary embolus on CT scan, was admitted overnight, started on Eliquis, discharged home. She has her first outpatient visit for anticoagulant follow-up scheduled with PCP on Tuesday. She then developed vaginal bleeding yesterday with heavy bleeding and passage of clots, was seen emergently in the office today, however unable to stop bleeding in the office. Dr Coates used silver nitrate and Monsel solution in an attempt to quell the bleeding. Unfortunately, the bleeding continued, and patient was feeling weak and dizzy, so she was taken to the emergency department by ambulance. At this point, she is eating and drinking normally, last food intake was at 2 PM today followed by apple juice in the office. She reports bowels and bladder function are back to normal. No fever or chills. Allergies Allergy/AdvReac Type Severity Reaction Status Date / Time miconazole Allergy Severe severe Verified 09/20/23 14:23 itching and burning propolis (bee glue) Allergy Severe "surgical Verified 09/20/23 14:23 glue" -- Rash adhesive tape Allergy Intermediate skin Verified 09/20/23 14:23 irritation/rash latex Allergy Rash Verified 07/09/24 14:23 Home Medications Medication Instructions Recorded Confirmed Type docusate sodium 100 mg capsule 100 mg PO TID 09/15/23 09/20/23 History (Colace) polyethylene glycol 3350 17 gram 17 g PO DAILY PRN Constipation 09/15/23 09/20/23 History oral powder packet (Miralax) amoxicillin 875 mg-potassium 1 tab PO Q12H 10 days #20 tabs 09/17/23 09/20/23 Rx clavulanate 125 mg tablet apixaban 5 mg tablet (Eliquis) 5 mg PO DIRECTED #60 tabs 09/17/23 09/20/23 Rx acetaminophen 325 mg tablet 650 mg PO Q6 PRN Pain 09/20/23 09/20/23 History ibuprofen 600 mg tablet 600 mg PO Q8 PRN Pain 09/20/23 09/20/23 History oxycodone 5 mg tablet 5 mg PO DAILY PRN Pain 09/20/23 09/20/23 History Patient History Medical History Hx of gastroesophageal reflux (GERD) diet controlled History of pneumonia as a teenager History of COVID-19 (2019) mild, not hospitalized, Hx of ovarian cyst Hx of endometriosis Pain in female pelvis Abnormal uterine bleeding History of gestational hypertension resulted in Hx of migraines Surgical History Hx of bilateral salpingectomy (12/2022) [place] teeth removed History of tonsillectomy and adenoidectomy History of anesthesia complications epidural "did not work with her last , when they took me in for my , I felt everything and they had to put me completely under general anesthesia" History of esophagogastroduodenoscopy (EGD) History of laparoscopy x 2>for endometriosis and "softball sized" ovarian cyst (2016) S/P cholecystectomy Hx of section x 2 Family History Father Heart disease recent [place], Stents, in 40's Myocardial infarction in 40's, had stents Grandfather Heart disease Other Diabetes No family history of adverse response to anesthesia Social History Smoking Status: Never smoker Second Hand Exposure: No; Do You Dip or Chew Tobacco: No; Hx Alcohol Use: Yes Alcohol type: beer Hx Substance Use: No Preferred Language: Chilean Communication Ability: Effective Horse Show Judge Required: No Beliefs That Will Affect Care: None marital status: marital status details: Dong (27) [phone] Current Living Situation: Spouse and Family Current Living Situation Comment: lives with spouse, daughter, 1 dog, 1 cat, spouse to change litter current occupational status: employed current occupation: [employer] Feels Safe at Home: Yes Assistive Devices: None Physical Exam Physical Exam: Patient is sitting awake in bed, talking Incisions are healing well, abdomen is soft and nontender. Nondistended. I performed a pelvic exam with plastic speculum, approximately 50 cc of dark red clots were evacuated from the vaginal vault. Vaginal cuff intact, no visible active bleeding at this point. The vagina was then gently packed with TXA soaked quarter inch packing. Results & Data Vital Signs (Past 12 Hours) Vital Signs Temp Pulse Resp BP Pulse Ox O2 Del Method 09/20/23 16:26 88 18 100 Room Air 09/20/23 15:58 36.8 C 91 H 18 114/84 100 Room Air PG Care Time/CCT Total # of Minutes Spent Total Time Spent with Patient: Total time spent is greater than 50% in coordination of care (as documented) at patient's floor/unit and/or counseling patient: Coding Level of Care Code 63957 IN/OBS CONSULT LVL 3,45M Diagnoses Vaginal bleeding N93.9
[2023-09-20] MEDS: TXA 10% Non-IV Routes 100 MG/ML VIAL ONE (17:08)
[2023-09-20] MEDS: TXA 10% Non-IV Routes 100 MG/ML VIAL TOP ONE (17:08)
[2023-09-20] MEDS: OPTIRAY 320 100ml IV ONE (17:25)
--- NOTE | 2023-09-20 18:31 | Consultation ---
Date of Consultation September 20, 2023 Assessment & Plan (1) Pulmonary embolus, right: Incidentally found to have segmental PE on CT angiogram on 09/16/23 Anticoagulation workup obtained is still pending Started on Eliquis 10 mg twice daily Took a dose today prior to her visit to [facility] She is hemodynamically stable, no evidence of right ventricular heart strain on the CT We can safely hold her Eliquis until her vaginal bleeding is under good control. Encourage ambulation and while in bed SCDs (2) Vaginal bleeding: She is about 3 weeks post hysterectomy For endometriosis Bleeding is coming from the vaginal cuff Bleeding is Currently under good control Hemoglobin 13.3 Continue monitor hemoglobin Repeat in the morning Plan Thank you for allowing us participate in taking care of this patient History of Present Illness Reason for Consultation: Vaginal bleed is, on Eliquis History of Present Illness Is a 23-year-old female with a history of endometriosis, now status post laparoscopic hysterectomy who presents to the hospital today on account of vaginal bleeding. Patient underwent laparoscopic hysterectomy on 31 August 2023. She presented to the associate genetics professor office today with vaginal bleeding and she was then subsequently asked to come to the emergency department. Internal medicine was consulted for medical management. Incidentally she was diagnosed with pulmonary embolism on September 15, 2023. CT angio showed a segmental pulmonary embolus within the lateral basal segment of the right lower lobe. For that she was subsequently started on Eliquis for which she took a dose today. Upon my evaluation the emergency department, the bleeding is stopped however sedation was made to monitor overnight because of her anticoagulation status. Currently vital signs stable blood pressure 114/84, hemoglobin is also stable 13.5. Allergies Allergy/AdvReac Type Severity Reaction Status Date / Time miconazole Allergy Severe severe Verified 09/20/23 14:23 itching and burning propolis (bee glue) Allergy Severe "surgical Verified 09/20/23 14:23 glue" -- Rash adhesive tape Allergy Intermediate skin Verified 09/20/23 14:23 irritation/rash latex Allergy Rash Verified 09/20/23 14:23 Home Medications Medication Instructions Recorded Confirmed Type docusate sodium 100 mg capsule 100 mg PO TID 09/15/23 09/20/23 History (Colace) polyethylene glycol 3350 17 gram 17 g PO DAILY PRN Constipation 09/15/23 09/20/23 History oral powder packet (Miralax) amoxicillin 875 mg-potassium 1 tab PO Q12H 10 days #20 tabs 09/17/23 09/20/23 Rx clavulanate 125 mg tablet apixaban 5 mg tablet (Eliquis) 5 mg PO DIRECTED #60 tabs 09/17/23 09/20/23 Rx acetaminophen 325 mg tablet 650 mg PO Q6 PRN Pain 09/20/23 09/20/23 History ibuprofen 600 mg tablet 600 mg PO Q8 PRN Pain 09/20/23 09/20/23 History oxycodone 5 mg tablet 5 mg PO DAILY PRN Pain 09/20/23 09/20/23 History Patient History Medical History Hx of gastroesophageal reflux (GERD) diet controlled History of pneumonia as a teenager History of COVID-19 (2019) mild, not hospitalized, Hx of ovarian cyst Hx of endometriosis Pain in female pelvis Abnormal uterine bleeding History of gestational hypertension resulted in Hx of migraines Surgical History Hx of bilateral salpingectomy (12/2022) [place] teeth removed History of tonsillectomy and adenoidectomy History of anesthesia complications epidural "did not work with her last , when they took me in for my , I felt everything and they had to put me completely under general anesthesia" History of esophagogastroduodenoscopy (EGD) History of laparoscopy x 2>for endometriosis and "softball sized" ovarian cyst (2016) S/P cholecystectomy Hx of section x 2 Family History Father Heart disease recent CA, Stents, in 40's Myocardial infarction in 40's, had stents Grandfather Heart disease Other Diabetes No family history of adverse response to anesthesia Social History Smoking Status: Never smoker Second Hand Exposure: No; Do You Dip or Chew Tobacco: No; Hx Alcohol Use: Yes Alcohol type: beer Hx Substance Use: No Preferred Language: Yakut Communication Ability: Effective Him Analyst Required: No Beliefs That Will Affect Care: None marital status: marital status details: Dong (27) [phone] Current Living Situation: Spouse and Family Current Living Situation Comment: lives with spouse, daughter, 1 dog, 1 cat, spouse to change litter current occupational status: employed current occupation: [employer] Feels Safe at Home: Yes Assistive Devices: None Review of Systems Review of Systems: All systems reviewed are negative, apart from the ones contained in the history. Physical Exam Physical Exam: The patient is awake, alert and oriented 3, well developed and well nourished, normocephalic and atraumatic, lying in bed and in no acute distress. HEENT--PERRL, EOMI, mucous membranes and oropharynx mildly dry Neck--supple. No JVD. No bruits. Thyroid normal, trachea midline, no adenopathy. Heart--normal S1 and S2. No murmurs, rubs or gallops. Lungs--clear bilaterally, no respiratory distress, no accessory muscle use. Abdomen--normal bowel sounds and soft. Extremities--no cyanosis or clubbing. No edema. Dermatologic--normal skin turgor, normal color, no abnormal lymph nodes, no rash. Neurologic--cranial nerves II through XII grossly intact. Rheumatologic--normal range of motion. Psychiatric--normal affect. Results & Data Vital Signs (Past 12 Hours) Vital Signs Temp Pulse Resp BP Pulse Ox O2 Del Method 09/20/23 16:26 88 18 100 Room Air 09/20/23 16:03 88 09/20/23 15:58 98.2 F 91 H 18 114/84 100 Room Air
--- NOTE | 2023-09-20 18:50 | CT Scan Report ---
CT SCAN OF THE ABDOMEN AND PELVIS WITH IV CONTRAST CLINICAL HISTORY: Vaginal bleeding. Reported history of a recent surgical procedure. COMPARISON STUDY: Abdominal CT dated 09/15/2023. TECHNIQUE: Following the IV administration of 95 cc of Optiray 320, CT scan of the abdomen and pelvi s is performed from the lung bases to the proximal femora. Images are reviewed in the axial, sagittal , and coronal planes. IV contrast was administered without complication. A dose lowering technique wa s utilized adhering to the principles of ALARA. CT DOSE: 1025.05 mGy.cm FINDINGS: Lung bases: The heart is normal in size and without pericardial effusion. The lung bases are clear. Liver: The contrast-enhanced liver is normal in size, contour, and attenuation. A subcentimeter cyst is noted in the right lobe. There is no intrahepatic biliary ductal dilatation. The hepatic veins and portal veins are patent. Gallbladder: Unremarkable. Spleen: Normal in size and attenuation. Pancreas: Unremarkable. Adrenal glands: Unremarkable. Kidneys: The contrast enhanced kidneys are normal in size and without hydronephrosis. The kidneys enh ance symmetrically. Abdominal vasculature: The abdominal aorta is normal in course and caliber. Bowel: There is moderate moderate colonic fecal retention. No bowel obstruction is seen. The appendix is well-visualized and normal. Peritoneum: There is no intraperitoneal free air or abdominal ascites. There is a fat-containing umbi lical hernia. Periumbilical induration may be related to a laparoscopy port. Lymphadenopathy: None. Pelvic viscera: The the bladder is normal as visualized. Uterus is surgically absent. Hyperdense mate rial along the vaginal cuff likely represents postsurgical change. Fluid/debris is suggested in the u pper vagina. There is thrombus within the right gonadal vein, and probable thrombus within the left g onadal vein. Induration within the upper pelvis is likely a postoperative basis. There is a small poc ket of complex fluid in the rectovaginal space on axial image #299. This measures 1.8 x 2.3 x 1.9 cm. Skeletal structures: No lytic or blastic lesions are seen. IMPRESSION: 1. The uterus is surgically absent, and hyperdense material along the vaginal cuff likely represents postsurgical change. Correlate with the operative history. 2. Complex fluid/debris is suggested within the vagina. Correlate with direct visualization. 3. There is a small complex pocket of fluid in the rectovaginal space as above which measures up to 2 .3 cm. This may represent a small hematoma. The sterility of this fluid cannot be assessed by imaging , and it is unclear if this communicates with the vaginal cuff. 4. Nonspecific infiltration throughout the pelvis is likely on a postsurgical basis. 5. Nonocclusive thrombus is seen within both gonadal veins. 6. Additional findings as above. ACT 112: Negative or not required by law. Electronically signed by: Villa Davenport M.D. 09/20/2023 6:48 PM
[2023-09-20] MEDS ORDERED: IBUPROFEN 600 MG TAB PO PRN (20:31)
[2023-09-20] MEDS ORDERED: oxyCODONE/ACETAMINOPHEN 5mg/325mg TAB PO PRN (20:31)
--- NOTE | 2023-09-20 21:21 | Gynecologic Progress Note ---
Date of Service September 20, 2023 Assessment & Plan Admission and Anticipated Discharge Date Admission Date: September 20, 2023 Subjective Called to patient room to evaluate - she got up to urinate and had bloody urine in hat, and pad has small [place] of red blood. Awake, ambulating, talking. On exam, packing is red - still in place - no oozing around packing. There is a [place] of blood on pad, nothing on chux underpad. Lab has just drawn CBC - will watch for these results. Continue monitoring. Anticipate with holding Eliquis tonight, will likely see improvement in vaginal bleeding. Results & Data Vital Signs (Past 12 Hours) Vital Signs Temp Pulse Resp BP Pulse Ox O2 Del Method O2 Del Method 09/20/23 20:46 Room Air 09/20/23 20:15 77 18 116/77 99 09/20/23 16:26 88 18 100 Room Air 09/20/23 16:03 88 09/20/23 15:58 36.8 C 91 H 18 114/84 100 Room Air
[2023-09-20] MEDS: DOCUSATE SODIUM 100 MG CAP PO SCH (21:31)
[2023-09-20] MEDS: LACTATED RINGER'S 1,000 ML IV SCH (21:31)
[2023-09-20 21:36] LABS: Hemoglobin 12.8 g/dl (12.0-16.0); Mean Corpuscular Hemoglobin 29.6 pg (25.0-34.0); Mean Corpuscular Hgb Conc 33.7 g/dL (32.0-36.0); Mean Corpuscular Volume 87.8 fL (80.0-100.0); Mean Platelet Volume 9.5 fL (9.4-12.4); Platelet Count 361 K/uL (130-400); RDW Coefficient of Variation 12.1 % (11.5-14.5); RDW Standard Deviation 38.9 fL (36.4-46.3); Red Blood Count 4.33 M/uL (4.20-5.40); White Blood Count 6.96 K/ul (4.8-10.8)
[2023-09-20] MEDS ORDERED: Nursing to Pharmacy Communication SCH (21:45)
[2023-09-20] MEDS: ACETAMINOPHEN 325 MG TAB PO PRN (22:43)
[2023-09-21] MEDS: AMOXICILLIN/CLAVULANATE 875 MG TAB PO SCH (03:02)
[2023-09-21 06:30] LABS: Basophils # (auto) 0.04 K/uL (0.00-0.20); Basophils % (auto) 0.8 %; Eosinophils # (auto) 0.37 K/uL (0.00-0.50); Eosinophils % (auto) 7.3 %; Hematocrit (blood only) 33.3 % (37.0-47.0); Hemoglobin 11.4 g/dl (12.0-16.0); Immature Granulocytes # (auto) 0.01 K/uL (0.01-0.20); Immature Granulocytes % (auto) 0.2 %; Lymphocytes # (auto) 1.25 K/uL (1.20-3.40); Lymphocytes % (auto) 24.6 %; Mean Corpuscular Hemoglobin 29.8 pg (25.0-34.0); Mean Corpuscular Hgb Conc 34.2 g/dL (32.0-36.0); Mean Corpuscular Volume 86.9 fL (80.0-100.0); Mean Platelet Volume 9.4 fL (9.4-12.4); Monocytes # (auto) 0.56 K/uL (0.11-0.59); Neutrophils # (auto) 2.85 K/uL (1.40-6.50); Neutrophils % (auto) 56.1 %; Platelet Count 286 K/uL (130-400); RDW Coefficient of Variation 12.2 % (11.5-14.5); Red Blood Count 3.83 M/uL (4.20-5.40); White Blood Count 5.08 K/ul (4.8-10.8)
--- NOTE | 2023-09-21 07:20 | Gynecologic Progress Note ---
Date of Service September 21, 2023 Assessment & Plan Admission and Anticipated Discharge Date Admission Date: September 20, 2023 Subjective On morning rounds, patient is awake and sitting in bed. She had ambulated to bathroom earlier and said the blood on the pad was less than last night. Still feeling somewhat weak. No syncopal episodes. Vitals stable. Hgb 12.8 last night, AM lab 11.4. Packing still in place during rounds - Dr Coates also at bedside - plan is to remove packing and monitor for further bleeding this morning, repeat H/H at lunchtime. Results & Data Vital Signs (Past 12 Hours) Vital Signs Temp Pulse Pulse Resp BP BP BP 09/21/23 03:00 36.5 C 72 16 119/77 09/21/23 00:50 36.7 C 76 16 115/60 09/20/23 22:44 71 18 117/75 09/20/23 20:46 09/20/23 20:23 36.6 C 18 123/73 09/20/23 20:15 77 18 116/77 Pulse Ox O2 Del Method O2 Del Method 09/21/23 03:00 98 Room Air 09/21/23 00:50 98 Room Air 09/20/23 22:44 97 Room Air 09/20/23 20:46 Room Air 09/20/23 20:23 98 Room Air 09/20/23 20:15 99
--- NOTE | 2023-09-21 07:53 | Gynecologic Progress Note ---
Date of Service September 21, 2023 Assessment & Plan Admission and Anticipated Discharge Date Admission Date: September 20, 2023 Subjective Patient stable this morning reviewed with Dr. Chu on-call and Dr. Hernandez as well who is coming tong hooker Patient's bleeding has been minimal overnight although she has had packing in place. When she pees she does notice blood not from the urine but from the vagina it is darker in color This morning I remove the packing and there was dark blood soaked on it but no active bleeding was noted at that time and then I went back to the patient's room 15 minutes later and still no active bleeding Will keep her n.p.o. this morning hoping to hold the Eliquis a little longer to ensure her bleeding has resolved. If bleeding starts up again may have to consider other interventions including possible assessment in the OR and reapproximation of cuff for vaginal bleeding spent considerable time with patient reviewing the situation patient and partner voiced understanding will continue to monitor today closely Results & Data Vital Signs (Past 12 Hours) Vital Signs Temp Pulse Pulse Resp BP BP BP 09/21/23 03:00 97.7 F 72 16 119/77 09/21/23 00:50 98.1 F 76 16 115/60 09/20/23 22:44 71 18 117/75 09/20/23 20:46 09/20/23 20:23 97.9 F 18 123/73 09/20/23 20:15 77 18 116/77 Pulse Ox O2 Del Method O2 Del Method 09/21/23 03:00 98 Room Air 09/21/23 00:50 98 Room Air 09/20/23 22:44 97 Room Air 09/20/23 20:46 Room Air 09/20/23 20:23 98 Room Air 09/20/23 20:15 99 PG Care Time/CCT Total # of Minutes Spent Total Time Spent with Patient: Total time spent is greater than 50% in coordination of care (as documented) at patient's floor/unit and/or counseling patient: Coding Level of Care Code None
--- NOTE | 2023-09-21 11:36 | Hospitalist Progress Note ---
Date of Service September 21, 2023 Assessment & Plan (1) Pulmonary embolus, right: Plan: Incidentally found to have segmental PE on CT angiogram on 09/16/23 Anticoagulation workup obtained is still pending Started on Eliquis 10 mg twice daily Took a dose 09/20/23 prior to her visit to [facility] She is hemodynamically stable, no evidence of right ventricular heart strain on the CT We Will continue to hold her Eliquis until her vaginal bleeding is under good control. Encourage ambulation and while in bed SCDs (2) Vaginal bleeding: Plan: She is about 3 weeks post hysterectomy For endometriosis Bleeding is coming from the vaginal cuff Bleeding is Currently under good control, But just some minimal bleed and clots which may be old blood. Hemoglobin 11 Continue monitor hemoglobin Repeat Hemoglobin in the morning Continue to hold Eliquis Plan Thank you for allowing us participate in taking care of this patient Admission and Anticipated Discharge Date Admission Date: September 20, 2023 Subjective Patient seen this morning, endorses some minimal vaginal bleeding, some blood clots probably old blood. Review of Systems Review of Systems: All systems reviewed are negative, apart from the ones contained in the history. Physical Exam Physical Exam: The patient is awake, alert and oriented 3, well developed and well nourished, normocephalic and atraumatic, lying in bed and in no acute distress. HEENT--PERRL, EOMI, mucous membranes and oropharynx mildly dry Neck--supple. No JVD. No bruits. Thyroid normal, trachea midline, no adenopathy. Heart--normal S1 and S2. No murmurs, rubs or gallops. Lungs--clear bilaterally, no respiratory distress, no accessory muscle use. Abdomen--normal bowel sounds and soft. Extremities--no cyanosis or clubbing. No edema. Dermatologic--normal skin turgor, normal color, no abnormal lymph nodes, no rash. Neurologic--cranial nerves II through XII grossly intact. Rheumatologic--normal range of motion. Psychiatric--normal affect. Results & Data Results & Data Vital Signs (Past 12 Hours) Vital Signs Temp Pulse Pulse Resp BP BP Pulse Ox 09/21/23 07:20 97.9 F 65 12 126/78 99 09/21/23 03:00 97.7 F 72 16 119/77 98 09/21/23 00:50 98.1 F 76 16 115/60 98 O2 Del Method 09/21/23 07:20 Room Air 09/21/23 03:00 Room Air 09/21/23 00:50 Room Air PG Care Time/CCT Total # of Minutes Spent Total Time Spent with Patient: Total time spent is greater than 50% in coordination of care (as documented) at patient's floor/unit and/or counseling patient: Coding Level of Care Code 48796 SUB INP/OBS CARE 2/35MIN Diagnoses Pulmonary embolus, right I26.99 Vaginal bleeding N93.9 Time Spent (min) 35
[2023-09-21 12:36] LABS: Hematocrit (blood only) 35.5 % (37.0-47.0); Hemoglobin 12.1 g/dl (12.0-16.0)
--- NOTE | 2023-09-21 13:09 | Communication Note ---
Date of Service: September 21, 2023 Patient doing well, no active bleeding, hungry and hgb returned 12.1. Vitals stable. Will allow po. Spoke to hospitalist medicine re: plan for dosing once we are ready to restart eliquis and he feels good to start at the 5mg bid dosing schedule and is comfortable with that being tomorrow am. Communicated with Dr. Coates, and plan for now if stable is for restart eliquis in am. Has urinary retention requiring rivera insert and will plan to leave in overnight for voiding trial in am. Patient aware and agreeable to this plan.
--- NOTE | 2023-09-21 15:29 | Gynecologic Progress Note ---
Date of Service September 21, 2023 Assessment & Plan (1) Pain of left calf: (2) Pulmonary embolus, right: (3) Post-operative state: Plan Given patient recent history of PE, thrombosis of ovarian vessels, rec duplex study. will followup on results. no scds until results. pt aware. taking po without issue and will dc ivf. Admission and Anticipated Discharge Date Admission Date: September 20, 2023 Subjective [address]sp due to complaints of left calf pain on arrival in room, pt laying in bed, scds off. notes was having a numbness feeling in bilateral LE and so SCD were removed to see if helped. she notes her numbness feeling has pretty much resolved but has residual left calf pain. she denies cp or sob. no vag bleeding. Physical Exam Constitutional: WD/WN, vitals as above (pulse normal) Musculoskeletal: Bilateral LE appear wnl, of equal size. Left calf pain on palpation but no cords, erythema noted. Neg dm's Normal warmth of bilat LE Results & Data Vital Signs (Past 12 Hours) Vital Signs Temp Pulse Resp BP Pulse Ox O2 Del Method 09/21/23 15:00 98.1 F 78 16 125/80 99 Room Air 09/21/23 13:00 97.7 F 70 12 138/79 99 Room Air 09/21/23 11:00 97.9 F 63 12 110/73 99 Room Air 09/21/23 09:00 97.5 F L 67 12 117/84 100 Room Air 09/21/23 07:20 97.9 F 65 12 126/78 99 Room Air PG Care Time/CCT Total # of Minutes Spent Total Time Spent with Patient: Total time spent is greater than 50% in coordination of care (as documented) at patient's floor/unit and/or counseling patient: Coding Level of Care Code None Diagnoses Pain of left calf M79.662 Pulmonary embolus, right I26.99 Post-operative state Z98.890
--- NOTE | 2023-09-21 16:09 | Ultrasound Report ---
LEFT LOWER EXTREMITY VENOUS DOPPLER HISTORY: Acute pain and swelling of left lower leg left calf pain, pt with current known PE COMPARISON STUDY: None. FINDINGS: There is normal compressibility, flow, and augmentation within the left lower extremity maren p venous system. IMPRESSION: No DVT within the left lower extremity. ACT 112: Negative or not required by law. Electronically signed by: Daniel Perez M.D. 09/21/2023 4:08 PM
--- NOTE | 2023-09-21 19:28 | Communication Note ---
Date of Service: September 21, 2023 Duplex negative. Ok to use scds. Nursing aware. Patient made aware of results via nursing.
[2023-09-21] MEDS: LACTATED RINGER'S 1,000 ML IV SCH (23:51)
[2023-09-22 07:11] LABS: Basophils # (auto) 0.04 K/uL (0.00-0.20); Basophils % (auto) 0.7 %; Eosinophils # (auto) 0.47 K/uL (0.00-0.50); Eosinophils % (auto) 8.3 %; Hematocrit (blood only) 35.2 % (37.0-47.0); Hemoglobin 11.9 g/dl (12.0-16.0); Immature Granulocytes # (auto) 0.01 K/uL (0.01-0.20); Immature Granulocytes % (auto) 0.2 %; Lymphocytes # (auto) 1.25 K/uL (1.20-3.40); Mean Corpuscular Hemoglobin 29.6 pg (25.0-34.0); Mean Corpuscular Hgb Conc 33.8 g/dL (32.0-36.0); Mean Corpuscular Volume 87.6 fL (80.0-100.0); Mean Platelet Volume 9.5 fL (9.4-12.4); Monocytes # (auto) 0.54 K/uL (0.11-0.59); Monocytes % (auto) 9.5 %; Neutrophils # (auto) 3.37 K/uL (1.40-6.50); Neutrophils % (auto) 59.3 %; Platelet Count 300 K/uL (130-400); RDW Coefficient of Variation 12.2 % (11.5-14.5); RDW Standard Deviation 39.3 fL (36.4-46.3); Red Blood Count 4.02 M/uL (4.20-5.40); White Blood Count 5.68 K/ul (4.8-10.8)
--- NOTE | 2023-09-22 08:47 | Gynecologic Progress Note ---
Date of Service September 22, 2023 Assessment & Plan Admission and Anticipated Discharge Date Admission Date: September 20, 2023 Subjective Received signout from Dr. David Hernandez and I have been in communication during patient's hospitalization as well including yesterday The patient did have a small dark clot this morning and a slightly larger 1 last night however no bright red bleeding does not feel like she is bleeding now she has urinary retention and has a Sheldon catheter in I performed a brief digital exam with nursing present there is no significant active bleeding just some very dark blood from the vagina I palpated on the inside and no active bleeding was noticed I reviewed the situation with the patient I discussed the option of oversewing the cuff as there was 1 raw edge she does not have a dehiscence however if she has bleeding from the raw edges this could help However her bleeding is not active her hemoglobin is stable and I also worry doing a procedure while she has a PE would carry some risk. I also worry that her bleeding is somewhat draining from the hematoma that was small in the pelvis and that oversewing the cuff will not affect help this In full discussion with the patient and her partner I recommended we not do any further cuff revision at this stage that we start the Eliquis per medicine I will try to speak to the hospitalist we will let her eat Sheldon catheter will be removed and we will keep her here today to monitor bleeding Results & Data Vital Signs (Past 12 Hours) Vital Signs Temp Pulse Resp BP Pulse Ox O2 Del Method 09/22/23 07:39 97.7 F 84 18 107/71 99 Room Air 09/22/23 04:30 97.7 F 67 18 114/73 97 Room Air 09/21/23 22:31 98.2 F 77 18 121/81 99 Room Air PG Care Time/CCT Total # of Minutes Spent Total Time Spent with Patient: Total time spent is greater than 50% in coordination of care (as documented) at patient's floor/unit and/or counseling patient: Coding Level of Care Code None
[2023-09-22] MEDS ORDERED: Nursing to Pharmacy Communication SCH (10:15)
[2023-09-22] MEDS: APIXABAN 5 MG TABLET PO ONE (10:30)
--- NOTE | 2023-09-22 12:53 | Hospitalist Progress Note ---
Date of Service September 22, 2023 Assessment & Plan (1) Pulmonary embolus, right: Plan: Patient was Incidentally found to have segmental PE on CT angiogram on 09/16/23 Anticoagulation workup obtained is still pending Initially Started on Eliquis 10 mg twice daily Took a dose 10 mg on 09/20/23 prior to her visit to [facility] She is hemodynamically stable, no evidence of right ventricular heart strain on the CT Hemoglobin has been stable and reassuring Bleeding has considerably slowed down, passing possibly old blood clots Will resume Eliquis 5 mg twice daily Monitor for increased bleeding (2) Vaginal bleeding: Plan: She is about 3 weeks post hysterectomy For endometriosis Bleeding is coming from the vaginal cuff Bleeding is Currently under good control, But just some minimal bleed and clots which may be old blood. Hemoglobin 11 And reassuring Continue monitor hemoglobin Repeat Hemoglobin in the morning Plan Thank you for allowing us participate in taking care of this patient Admission and Anticipated Discharge Date Admission Date: September 20, 2023 Subjective Patient seen and examined, past about 1 or 2 small clots Review of Systems Review of Systems: All systems reviewed are negative, apart from the ones contained in the history. Physical Exam Physical Exam: The patient is awake, alert and oriented 3, well developed and well nourished, normocephalic and atraumatic, lying in bed and in no acute distress. HEENT--PERRL, EOMI, mucous membranes and oropharynx mildly dry Neck--supple. No JVD. No bruits. Thyroid normal, trachea midline, no adenopathy. Heart--normal S1 and S2. No murmurs, rubs or gallops. Lungs--clear bilaterally, no respiratory distress, no accessory muscle use. Abdomen--normal bowel sounds and soft. Extremities--no cyanosis or clubbing. No edema. Dermatologic--normal skin turgor, normal color, no abnormal lymph nodes, no rash. Neurologic--cranial nerves II through XII grossly intact. Rheumatologic--normal range of motion. Psychiatric--normal affect. Results & Data Results & Data Vital Signs (Past 12 Hours) Vital Signs Temp Pulse Resp BP Pulse Ox O2 Del Method 09/22/23 07:39 97.7 F 84 18 107/71 99 Room Air 09/22/23 04:30 97.7 F 67 18 114/73 97 Room Air PG Care Time/CCT Total # of Minutes Spent Total Time Spent with Patient: Total time spent is greater than 50% in coordination of care (as documented) at patient's floor/unit and/or counseling patient: Coding Level of Care Code 44943 SUB INP/OBS CARE 2/35MIN Diagnoses Pulmonary embolus, right I26.99 Vaginal bleeding N93.9 Time Spent (min) 35
[2023-09-22] MEDS: POLYETHYLENE (MIRALAX) 17 GM PACK PO SCH (14:30)
[2023-09-22] MEDS: APIXABAN 5 MG TABLET PO SCH (21:36)
--- NOTE | 2023-09-23 07:19 | Gynecologic Progress Note ---
Date of Service September 23, 2023 Assessment & Plan Admission and Anticipated Discharge Date Admission Date: September 20, 2023 Subjective Patient today is stable her bleeding is less she is on her Eliquis and has been on for 24 hours we discussed if she was doing well that she would go home today patient wishes to go home reviewed the bleeding which is probably from an edge of the vaginal cuff related to blood thinners as well and the pulmonary embolus discussed in depth if she has problems she will contact us GRANT discussed that she probably will have some dark bleeding as long as it is fairly light that this is probably okay Discussed signs and symptoms to watch for that would be worrisome including heavier bleeding or pain or infection she will continue her antibiotics Results & Data Vital Signs (Past 12 Hours) Vital Signs Temp Pulse Resp BP Pulse Ox O2 Del Method 09/23/23 03:14 97.7 F 88 18 117/67 98 Room Air 09/23/23 00:15 98.1 F 69 18 109/66 98 Room Air PG Care Time/CCT Total # of Minutes Spent Total Time Spent with Patient: Total time spent is greater than 50% in coordination of care (as documented) at patient's floor/unit and/or counseling patient: Coding Level of Care Code None
[2023-09-23 08:17] LABS: Hematocrit (blood only) 37.1 % (37.0-47.0); Hemoglobin 12.2 g/dl (12.0-16.0); Mean Corpuscular Hemoglobin 28.9 pg (25.0-34.0); Mean Corpuscular Hgb Conc 32.9 g/dL (32.0-36.0); Mean Corpuscular Volume 87.9 fL (80.0-100.0); Mean Platelet Volume 9.4 fL (9.4-12.4); Platelet Count 326 K/uL (130-400); RDW Coefficient of Variation 12.2 % (11.5-14.5); RDW Standard Deviation 38.9 fL (36.4-46.3); Red Blood Count 4.22 M/uL (4.20-5.40); White Blood Count 5.57 K/ul (4.8-10.8)
--- NOTE | 2023-09-23 12:29 | Hospitalist Progress Note ---
Date of Service September 23, 2023 Assessment & Plan (1) Pulmonary embolus, right: Plan: Patient was Incidentally found to have segmental PE on CT angiogram on 09/16/23 Anticoagulation workup obtained is still pending Initially Started on Eliquis 10 mg twice daily Took a dose 10 mg on 09/20/23 prior to her visit to [facility] She is hemodynamically stable, no evidence of right ventricular heart strain on the CT Hemoglobin has been stable and reassuring Bleeding has stopped Continue Eliquis 5 mg twice daily Discharge home (2) Vaginal bleeding: Plan: She is about 3 weeks post hysterectomy For endometriosis Bleeding is coming from the vaginal cuff Bleeding is Currently under good control, But just some minimal bleed and clots which may be old blood. Hemoglobin 11 And reassuring Continue monitor hemoglobin Repeat Hemoglobin in the morning Plan Thank you for allowing us participate in taking care of this patient Admission and Anticipated Discharge Date Admission Date: September 20, 2023 Subjective Bleeding has stopped, patient ready for discharge Review of Systems Review of Systems: All systems reviewed are negative, apart from the ones contained in the history. Physical Exam Physical Exam: The patient is awake, alert and oriented 3, well developed and well nourished, normocephalic and atraumatic, lying in bed and in no acute distress. HEENT--PERRL, EOMI, mucous membranes and oropharynx mildly dry Neck--supple. No JVD. No bruits. Thyroid normal, trachea midline, no adenopathy. Heart--normal S1 and S2. No murmurs, rubs or gallops. Lungs--clear bilaterally, no respiratory distress, no accessory muscle use. Abdomen--normal bowel sounds and soft. Extremities--no cyanosis or clubbing. No edema. Dermatologic--normal skin turgor, normal color, no abnormal lymph nodes, no rash. Neurologic--cranial nerves II through XII grossly intact. Rheumatologic--normal range of motion. Psychiatric--normal affect. Results & Data Results & Data Vital Signs (Past 12 Hours) Vital Signs Temp Pulse Resp BP Pulse Ox O2 Del Method 09/23/23 08:07 98.1 F 74 16 125/74 98 09/23/23 07:59 98.1 F 74 16 125/74 98 Room Air 09/23/23 03:14 97.7 F 88 18 117/67 98 Room Air PG Care Time/CCT Total # of Minutes Spent Total Time Spent with Patient: Total time spent is greater than 50% in coordination of care (as documented) at patient's floor/unit and/or counseling patient: Coding Level of Care Code 15362 SUB INP/OBS CARE 2/35MIN Diagnoses Pulmonary embolus, right I26.99 Vaginal bleeding N93.9 Time Spent (min) 35
--- NOTE | 2023-09-28 01:31 | Discharge Summary ---
Date of Service September 28, 2023 Discharge Data Consultations 09/20/23 18:09 Consult Hospitalist Stat 09/20/23 18:43 ED Decision to Admit Stat 09/20/23 18:53 ED Decision to Admit Stat Hospital Course (1) Pain of left calf: (2) Pulmonary embolus, right: (3) Post-operative state: Plan Given patient recent history of PE, thrombosis of ovarian vessels, rec duplex study. will followup on results. no scds until results. pt aware. taking po without issue and will dc ivf. Coding Level of Care Code None Diagnoses Pain of left calf M79.662 Pulmonary embolus, right I26.99 Post-operative state Z98.890
== END 2023-09-23 09:30 | disposition home or self-care (01) ==
LOC: ED 15:55 → 4E1 19:41 → INTOOBSV 19:41 → 4E1 20:15